=== PATIENT | male | born 1960 | race African-American/Black ===

== ENCOUNTER 2017-03-04 13:08 | Inpatient (IN) | payer OTHER ==
[2017-03-04 14:10] VITALS: BMI 22.9
--- NOTE | 2017-03-04 17:12 | HP ---
Admission [facility] Chief Complaint: I WANT TO GO TO REHAB Allergies/Adverse Reactions: Allergies Allergy/AdvReac Type Severity Reaction Status Date / Time No Known Drug Allergies Allergy Verified 03/04/17 15:27 lactose AdvReac Unknown LACTOSE Verified 03/04/17 15:27 INTOLERANCE NKDA Allergy Uncoded 03/04/17 15:27 History of Present Illness: 56 YEARS OLD MALE WITH LONG HISTORY OF COCAINE ALCOHOL MARIJUANA DEPENDENCE, HAS HIV ARTHRITIS STUFFY NOSE HEPATITIS C AND WEIGHT LOSS DEPRESSION IS ADMITTED TO REHAB Exam Limitations: No Limitations - Ebola screening Have you traveled outside of the country in the last 21 days: No Have you had contact with anyone from an Ebola affected area: No Have you been sick,other than usual withdrawal symptoms: No Do you have a fever: No - Review of Systems Constitutional: Loss of Appetite, Unintentional Wgt. Loss, Unexplained wgt Loss EENT: reports: Blurred Vision (EYE GLASSES), Dental Problems (MULTIPLE TEETH CAVITIES) Respiratory: reports: No Symptoms reported Cardiac: reports: No Symptoms Reported GI: reports: No Symptoms Reported : reports: No Symptoms Reported Musculoskeletal: reports: Back Pain, Joint Pain, Muscle Pain Integumentary: reports: No Symptoms Reported Neuro: reports: No Symptoms reported Endocrine: reports: No Symptoms Reported Hematology: reports: No Symptoms Reported Psychiatric: reports: Judgement Intact, Orientated x3, Anxious, Depressed Other Systems: Reviewed and Negative Patient History - Patient Medical History Hx Anemia: No Hx Asthma: No Hx Chronic Obstructive Pulmonary Disease (COPD): No Hx Cancer: No Hx Cardiac Disorders: No Hx Congestive Heart Failure: No Hx Hypertension: No Hx Hypercholesterolemia: No Hx Pacemaker: No HX Cerebrovascular Accident: No Hx Seizures: No Hx Dementia: No Hx Diabetes: No Hx Gastrointestinal Disorders: No Hx Liver Disease: No Hx Genitourinary Disorders: No Hx Sexually Transmitted Disorders: Yes (gonorrhea and syphilis) Hx Renal Disease (ESRD): No Hx Thyroid Disease: No Hx Human Immunodeficiency Virus (HIV): Yes (since 1989) Hx Hepatitis C: Yes Hx Depression: Yes Hx Suicide Attempt: No Hx Bipolar Disorder: No Hx Schizophrenia: No - Patient Surgical History Past Surgical History: Yes Hx Neurologic Surgery: No Hx Cataract Extraction: No Hx Cardiac Surgery: No Hx Lung Surgery: No Hx Breast Surgery: No Hx Breast Biopsy: No Hx Abdominal Surgery: No Hx Appendectomy: No Hx Cholecystectomy: No Hx Genitourinary Surgery: No Hx Orthopedic Surgery: Yes (arthroscopic surgery left shoulder for rotator cuff injury) Other Surgical History: right knee surgery 2006 Anesthesia Reaction: No - PPD History Previous Implant?: Yes Documented Results: Negative w/proof Implanted On Prior [facility] Admission?: Yes Date: 03/28/16 Results: 0 mm PPD to be Administered?: No - Smoking Cessation Smoking history: Never smoked Have you smoked in the past 12 months: No Hx Chewing Tobacco Use: No Initiated information on smoking cessation: No - Substance & Tx. History Hx Alcohol Use: Yes Hx Substance Use: Yes Substance Use Type: Alcohol, Cocaine, Marijuana Hx Substance Use Treatment: Yes (03/26-03/30/16 [facility] - Substances Abused Cocaine Route: Smoking Frequency: Daily Amount used: 150$ Age of first use: 25 Date of Last Use: 03/03/17 Family Disease History - Family Disease History Family Disease History: Other: Father (NEVER MET), Mother ( UNKNOWN CAUSE), Brother (NO CONTACT), Sister (NO CONTACT) Admission Physical Exam S - Vital Signs Vital Signs: Vital Signs - 24 hr 03/04/17 14:03 Temperature 97 F L Pulse Rate 81 Respiratory 20 Rate Blood Pressure 129/88 - Physical General Appearance: Yes: No Apparent Distress, Appropriately Dressed, Thin HEENTM: Yes: Hearing grossly Normal, Normal ENT Inspection, Normocephalic, Normal Voice Respiratory: Yes: Chest Non-Tender, Lungs Clear, Normal Breath Sounds, No Respiratory Distress, No Accessory Muscle Use Neck: Yes: Supple, Trachea in good position Breast: Yes: Breasts Symetrical Cardiology: Yes: Regular Rhythm, Regular Rate, S1, S2 Abdominal: Yes: Normal Bowel Sounds, Non Tender, Soft Genitourinary: Yes: Within Normal Limits Back: Yes: Normal Inspection Musculoskeletal: Yes: full range of Motion, Gait Steady, Back pain, Muscle Pain Extremities: Yes: Normal Inspection, Normal Range of Motion, Non-Tender Neurological: Yes: Fully Oriented, Alert, Motor Strength 5/5, Normal Mood/Affect , Normal Response Integumentary: Yes: Warm Lymphatic: Yes: Within Normal Limits - Diagnostic (1) Acquired immune deficiency syndrome (AIDS) Current Visit: Yes Status: Chronic (2) First degree hemorrhoids Current Visit: Yes Status: Chronic (3) Weight decreased Current Visit: Yes Status: Acute (4) depression Current Visit: Yes Status: Suspected (5) Cocaine dependence, uncomplicated Current Visit: Yes Status: Chronic (6) Hepatitis C Current Visit: Yes Status: Resolved Qualifiers: Viral hepatitis chronicity: carrier Qualified Code(s): B18.2 - Chronic viral hepatitis C (7) Chronic nasal congestion Current Visit: Yes Status: Chronic (8) Dry skin dermatitis Current Visit: Yes Status: Chronic Cleared for Admission [facility] - Detox or Rehab [facility] Level of Care: Observation Bed Detox Regimen/Protocol: Not Applicable Claeared for Rehab Admission: Yes [facility] Breath Alcohol Content Breath Alcohol Content: 0 Urine Drug Screen - Results Drug Screen Negative: No Urine Drug Screen Results: BRENDON-Cocaine
[2017-03-04] MEDS ORDERED: MAG HYDROX/AL HYDROX/SIMETH 30 ML UNIT-DOSE CUP PO PRN (17:19)
[2017-03-04] MEDS ORDERED: P-EPHED 60MG/TRIPROLIDI 2.5MG TABLET PO PRN (17:19)
[2017-03-04] MEDS ORDERED: MAGNESIUM CITRATE 300 ML BOTTLE PO PRN (17:19)
[2017-03-04] MEDS ORDERED: MAGNESIUM HYDROX 2400MG/30ML ORAL SUSPENSION 30 ML CUP PO PRN (17:19)
[2017-03-04] MEDS ORDERED: hydrOXYzine PAMOATE 50 MG CAPSULE (FP) PO PRN (17:19)
[2017-03-04] MEDS ORDERED: MENTHOL/PHENOL 1 EACH UD MM PRN (17:19)
[2017-03-04] MEDS ORDERED: LOPERAMIDE HCL 2 MG CAPSULE PO PRN (17:19)
[2017-03-04] MEDS ORDERED: guaiFENesin/D-METHORPHAN HB 10 ML UNIT-DOSE CUPS PO PRN (17:19)
[2017-03-04] MEDS ORDERED: ACETAMINOPHEN 325 MG TABLET (FP) PO PRN (17:19)
[2017-03-04] MEDS ORDERED: BENZOCAINE 28 GM HEMORRHOIDAL OINTMENT PR PRN (17:23)
[2017-03-04] MEDS: SODIUM CHLORIDE NASAL SPRAY 44 ML BOTTLE NS SCH (22:00)
[2017-03-04] MEDS: THIAMINE HCL 100 MG TABLET (FP) PO SCH (22:00)
[2017-03-04] MEDS ORDERED: LORATADINE 10 MG TABLET PO SCH (22:00)
[2017-03-04] MEDS: NAPROXEN 500 MG TABLET (FP) PO SCH (22:00)
[2017-03-04] MEDS: MINERAL OIL/PETROLAT/WATER TOPICAL CREAM 113 GM JAR TP SCH (22:01)
[2017-03-04] MEDS: diphenhydrAMINE HCL 50 MG CAPSULE PO PRN (22:02)
[2017-03-05 00:37] LABS: URINE APPEARANCE CLEAR; URINE BILIRUBIN NEGATIVE (NEGATIVE); URINE BLOOD NEGATIVE (NEGATIVE); URINE COLOR STRAW; URINE GLUCOSE (UA) NEGATIVE (NEGATIVE); URINE KETONE NEGATIVE (NEGATIVE); URINE LEUK ESTERASE NEGATIVE (NEGATIVE); URINE NITRITE NEGATIVE (NEGATIVE); URINE PROTEIN NEGATIVE (NEGATIVE); URINE UROBILINOGEN NEGATIVE mg/dL (0.2-1.0)
[2017-03-05] MEDS: SODIUM CHLORIDE NASAL SPRAY 44 ML BOTTLE NS SCH ×3 (06:54→21:52)
--- NOTE | 2017-03-05 09:18 | EKG ---
Test Reason : Blood Pressure : / mmHG Vent. Rate : 069 BPM Atrial Rate : 069 BPM P-R Int : 162 ms QRS Dur : 086 ms QT Int : 392 ms P-R-T Axes : 073 079 079 degrees QTc Int : 420 ms NORMAL SINUS RHYTHM MINIMAL VOLTAGE CRITERIA FOR LVH, MAY BE NORMAL VARIANT NONSPECIFIC ST ABNORMALITY NO PREVIOUS ECGS AVAILABLE Confirmed by ARTURO HERMAN MD ([id number]) on 03/05/2017 9:17:44 AM Referred By: Confirmed By:ARTURO HERMAN MD
[2017-03-05] MEDS: PRENATAL VITAMINS W/ FOLIC ACID TABLET (FP) PO SCH (10:46)
[2017-03-05] MEDS: SULFAMETHOXAZOLE/TRIMETHOPRIM 800MG/160MG D.S. TABLET PO SCH (12:07)
[2017-03-05] MEDS: PATIENT'S OWN MEDICATION (NON-FORMULARY) (Elviteg/Cobi/Emtric/Tenofo Dis [Stribild Tablet] PO SCH (12:07)
[2017-03-05] MEDS: NAPROXEN 500 MG TABLET (FP) PO SCH ×2 (14:20→21:52)
[2017-03-05 14:22] LABS: MCH 30.4 pg (25.7-33.7); MCHC 32.9 g/dl (32.0-35.9); MEAN CELL VOLUME 92.5 fl (80-96); MEAN PLT VOLUME 10.1 fl (7.5-11.1); PLATELET COUNT 139 K/MM3 (134-434); RDW 14.5 % (11.9-15.9); WHITE BLOOD COUNT 2.6 K/mm3 (4.0-10.0)
[2017-03-05 14:40] LABS: ALBUMIN 3.2 g/dl (3.4-5.0); ANION GAP 5 (8-16); BILIRUBIN,TOTAL 0.5 mg/dL (0.2-1.0); CALCIUM 8.5 mg/dL (8.5-10.1); CO2 33 mmol/L (21-32); CREATININE 1.2 mg/dL (0.7-1.3); GLUCOSE,RANDOM 108 mg/dL (74-106); SGOT/AST 22 U/L (15-37); SGPT/ALT 28 U/L (12-78); TOT PROT 6.4 g/dl (6.4-8.2)
[2017-03-05 14:41] LABS: ALK PHOS 64 U/L (45-117)
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
[2017-03-05] MEDS: MINERAL OIL/PETROLAT/WATER TOPICAL CREAM 113 GM JAR TP SCH (21:52)
[2017-03-05] MEDS: THIAMINE HCL 100 MG TABLET (FP) PO SCH (21:52)
[2017-03-05] MEDS: LORATADINE 10 MG TABLET PO SCH (21:52)
[2017-03-05] MEDS: MIRTAZAPINE 30 MG TABLET (FP) PO SCH (21:53)
[2017-03-05] MEDS: risperiDONE 1 MG TABLET (FP) PO SCH (21:53)
[2017-03-06] MEDS: SODIUM CHLORIDE NASAL SPRAY 44 ML BOTTLE NS SCH ×3 (07:00→21:42)
[2017-03-06] MEDS: NAPROXEN 500 MG TABLET (FP) PO SCH ×2 (10:36→21:43)
[2017-03-06] MEDS: PRENATAL VITAMINS W/ FOLIC ACID TABLET (FP) PO SCH (10:36)
[2017-03-06] MEDS: SULFAMETHOXAZOLE/TRIMETHOPRIM 800MG/160MG D.S. TABLET PO SCH (10:36)
[2017-03-06] MEDS: PATIENT'S OWN MEDICATION (NON-FORMULARY) (Elviteg/Cobi/Emtric/Tenofo Dis [Stribild Tablet] PO SCH (10:37)
[2017-03-06] MEDS: risperiDONE 1 MG TABLET (FP) PO SCH (21:42)
[2017-03-06] MEDS: LORATADINE 10 MG TABLET PO SCH (21:42)
[2017-03-06] MEDS: MIRTAZAPINE 30 MG TABLET (FP) PO SCH (21:42)
[2017-03-06] MEDS: MINERAL OIL/PETROLAT/WATER TOPICAL CREAM 113 GM JAR TP SCH (21:42)
[2017-03-06] MEDS: THIAMINE HCL 100 MG TABLET (FP) PO SCH (21:42)
[2017-03-06] MEDS: RALTEGRAVIR POTASSIUM 400 MG TAB PO SCH (21:43)
[2017-03-07] MEDS: SODIUM CHLORIDE NASAL SPRAY 44 ML BOTTLE NS SCH ×3 (06:33→21:39)
[2017-03-07] MEDS: RALTEGRAVIR POTASSIUM 400 MG TAB PO SCH ×2 (10:35→21:39)
[2017-03-07] MEDS: PRENATAL VITAMINS W/ FOLIC ACID TABLET (FP) PO SCH (10:36)
[2017-03-07] MEDS: SULFAMETHOXAZOLE/TRIMETHOPRIM 800MG/160MG D.S. TABLET PO SCH (10:36)
[2017-03-07] MEDS: EMTRICITABINE 200MG/TENOFOVIR 300MG PO SCH (10:36)
[2017-03-07] MEDS: RITONAVIR 100 MG TABLET PO SCH (10:36)
[2017-03-07] MEDS: NAPROXEN 500 MG TABLET (FP) PO SCH ×2 (10:37→21:39)
[2017-03-07] MEDS: risperiDONE 1 MG TABLET (FP) PO SCH (21:39)
[2017-03-07] MEDS: LORATADINE 10 MG TABLET PO SCH (21:39)
[2017-03-07] MEDS: MIRTAZAPINE 30 MG TABLET (FP) PO SCH (21:39)
[2017-03-07] MEDS: THIAMINE HCL 100 MG TABLET (FP) PO SCH (21:39)
[2017-03-07] MEDS: MINERAL OIL/PETROLAT/WATER TOPICAL CREAM 113 GM JAR TP SCH (21:39)
[2017-03-08] MEDS: SODIUM CHLORIDE NASAL SPRAY 44 ML BOTTLE NS SCH ×3 (06:31→22:05)
[2017-03-08] MEDS: PRENATAL VITAMINS W/ FOLIC ACID TABLET (FP) PO SCH (10:25)
[2017-03-08] MEDS: NAPROXEN 500 MG TABLET (FP) PO SCH ×2 (10:25→22:03)
[2017-03-08] MEDS: EMTRICITABINE 200MG/TENOFOVIR 300MG PO SCH (10:25)
[2017-03-08] MEDS: RITONAVIR 100 MG TABLET PO SCH (10:26)
[2017-03-08] MEDS: SULFAMETHOXAZOLE/TRIMETHOPRIM 800MG/160MG D.S. TABLET PO SCH (10:26)
[2017-03-08] MEDS: RALTEGRAVIR POTASSIUM 400 MG TAB PO SCH ×2 (10:26→22:03)
[2017-03-08] MEDS: risperiDONE 1 MG TABLET (FP) PO SCH (22:02)
[2017-03-08] MEDS: MIRTAZAPINE 30 MG TABLET (FP) PO SCH (22:02)
[2017-03-08] MEDS: THIAMINE HCL 100 MG TABLET (FP) PO SCH (22:02)
[2017-03-08] MEDS: MINERAL OIL/PETROLAT/WATER TOPICAL CREAM 113 GM JAR TP SCH (22:03)
[2017-03-08] MEDS: LORATADINE 10 MG TABLET PO SCH (22:03)
[2017-03-09] MEDS: SODIUM CHLORIDE NASAL SPRAY 44 ML BOTTLE NS SCH ×3 (06:37→21:55)
[2017-03-09] MEDS: EMTRICITABINE 200MG/TENOFOVIR 300MG PO SCH (10:35)
[2017-03-09] MEDS: PRENATAL VITAMINS W/ FOLIC ACID TABLET (FP) PO SCH (10:35)
[2017-03-09] MEDS: RITONAVIR 100 MG TABLET PO SCH (10:35)
[2017-03-09] MEDS: SULFAMETHOXAZOLE/TRIMETHOPRIM 800MG/160MG D.S. TABLET PO SCH (10:35)
[2017-03-09] MEDS: RALTEGRAVIR POTASSIUM 400 MG TAB PO SCH ×2 (10:35→21:54)
[2017-03-09] MEDS: NAPROXEN 500 MG TABLET (FP) PO SCH ×2 (10:36→21:57)
[2017-03-09] MEDS ORDERED: IBUPROFEN 600 MG TABLET (FP) PO PRN (13:44)
[2017-03-09] MEDS ORDERED: IBUPROFEN 400 MG TABLET (FP) PO PRN (13:44)
[2017-03-09] MEDS: LIDOCAINE 5% TOPICAL PATCH TP SCH (15:35)
[2017-03-09] MEDS: PANTOPRAZOLE 40 MG TABLET (FP) PO SCH (15:35)
[2017-03-09] MEDS: THIAMINE HCL 100 MG TABLET (FP) PO SCH (21:54)
[2017-03-09] MEDS: risperiDONE 1 MG TABLET (FP) PO SCH (21:54)
[2017-03-09] MEDS: LORATADINE 10 MG TABLET PO SCH (21:54)
[2017-03-09] MEDS: MINERAL OIL/PETROLAT/WATER TOPICAL CREAM 113 GM JAR TP SCH (21:55)
[2017-03-09] MEDS: MIRTAZAPINE 30 MG TABLET (FP) PO SCH (21:56)
[2017-03-09] MEDS: LIDOCAINE PATCH REMOVAL MC SCH (22:49)
[2017-03-10] MEDS: SODIUM CHLORIDE NASAL SPRAY 44 ML BOTTLE NS SCH ×3 (06:10→22:01)
[2017-03-10] MEDS: SULFAMETHOXAZOLE/TRIMETHOPRIM 800MG/160MG D.S. TABLET PO SCH (10:34)
[2017-03-10] MEDS: NAPROXEN 500 MG TABLET (FP) PO SCH ×2 (10:34→21:58)
[2017-03-10] MEDS: PANTOPRAZOLE 40 MG TABLET (FP) PO SCH (10:34)
[2017-03-10] MEDS: RITONAVIR 100 MG TABLET PO SCH (10:34)
[2017-03-10] MEDS: PRENATAL VITAMINS W/ FOLIC ACID TABLET (FP) PO SCH (10:34)
[2017-03-10] MEDS: RALTEGRAVIR POTASSIUM 400 MG TAB PO SCH ×2 (10:34→21:58)
[2017-03-10] MEDS: EMTRICITABINE 200MG/TENOFOVIR 300MG PO SCH (10:34)
[2017-03-10] MEDS: LIDOCAINE 5% TOPICAL PATCH TP SCH (10:35)
[2017-03-10] MEDS: THIAMINE HCL 100 MG TABLET (FP) PO SCH (21:58)
[2017-03-10] MEDS: risperiDONE 1 MG TABLET (FP) PO SCH (21:58)
[2017-03-10] MEDS: diphenhydrAMINE HCL 50 MG CAPSULE PO PRN (21:58)
[2017-03-10] MEDS: MIRTAZAPINE 30 MG TABLET (FP) PO SCH (21:58)
[2017-03-10] MEDS: LIDOCAINE PATCH REMOVAL MC SCH (21:59)
[2017-03-10] MEDS: MINERAL OIL/PETROLAT/WATER TOPICAL CREAM 113 GM JAR TP SCH (21:59)
[2017-03-10] MEDS: LORATADINE 10 MG TABLET PO SCH (22:01)
[2017-03-11] MEDS: SODIUM CHLORIDE NASAL SPRAY 44 ML BOTTLE NS SCH ×3 (06:38→22:04)
[2017-03-11] MEDS: SULFAMETHOXAZOLE/TRIMETHOPRIM 800MG/160MG D.S. TABLET PO SCH (10:40)
[2017-03-11] MEDS: RITONAVIR 100 MG TABLET PO SCH (10:40)
[2017-03-11] MEDS: NAPROXEN 500 MG TABLET (FP) PO SCH ×2 (10:41→22:01)
[2017-03-11] MEDS: PRENATAL VITAMINS W/ FOLIC ACID TABLET (FP) PO SCH (10:41)
[2017-03-11] MEDS: EMTRICITABINE 200MG/TENOFOVIR 300MG PO SCH (10:41)
[2017-03-11] MEDS: PANTOPRAZOLE 40 MG TABLET (FP) PO SCH (10:41)
[2017-03-11] MEDS: RALTEGRAVIR POTASSIUM 400 MG TAB PO SCH ×2 (10:41→22:01)
[2017-03-11] MEDS: LIDOCAINE 5% TOPICAL PATCH TP SCH (10:42)
[2017-03-11] MEDS: THIAMINE HCL 100 MG TABLET (FP) PO SCH (22:01)
[2017-03-11] MEDS: risperiDONE 1 MG TABLET (FP) PO SCH (22:01)
[2017-03-11] MEDS: MIRTAZAPINE 30 MG TABLET (FP) PO SCH (22:01)
[2017-03-11] MEDS: LORATADINE 10 MG TABLET PO SCH (22:01)
[2017-03-11] MEDS: LIDOCAINE PATCH REMOVAL MC SCH (22:02)
[2017-03-11] MEDS: MINERAL OIL/PETROLAT/WATER TOPICAL CREAM 113 GM JAR TP SCH (22:02)
[2017-03-12] MEDS: SODIUM CHLORIDE NASAL SPRAY 44 ML BOTTLE NS SCH ×3 (07:02→21:58)
[2017-03-12] MEDS: LIDOCAINE 5% TOPICAL PATCH TP SCH (10:42)
[2017-03-12] MEDS: SULFAMETHOXAZOLE/TRIMETHOPRIM 800MG/160MG D.S. TABLET PO SCH (10:42)
[2017-03-12] MEDS: EMTRICITABINE 200MG/TENOFOVIR 300MG PO SCH (10:42)
[2017-03-12] MEDS: RITONAVIR 100 MG TABLET PO SCH (10:42)
[2017-03-12] MEDS: RALTEGRAVIR POTASSIUM 400 MG TAB PO SCH ×2 (10:43→21:57)
[2017-03-12] MEDS: PANTOPRAZOLE 40 MG TABLET (FP) PO SCH (10:43)
[2017-03-12] MEDS: NAPROXEN 500 MG TABLET (FP) PO SCH ×2 (10:43→21:57)
[2017-03-12] MEDS: PRENATAL VITAMINS W/ FOLIC ACID TABLET (FP) PO SCH (10:43)
[2017-03-12] MEDS: LORATADINE 10 MG TABLET PO SCH (21:56)
[2017-03-12] MEDS: MIRTAZAPINE 30 MG TABLET (FP) PO SCH (21:56)
[2017-03-12] MEDS: THIAMINE HCL 100 MG TABLET (FP) PO SCH (21:56)
[2017-03-12] MEDS: risperiDONE 1 MG TABLET (FP) PO SCH (21:56)
[2017-03-12] MEDS: DOCUSATE SODIUM 100 MG CAPSULE (FP) PO SCH (21:57)
[2017-03-12] MEDS: MINERAL OIL/PETROLAT/WATER TOPICAL CREAM 113 GM JAR TP SCH (21:57)
[2017-03-12] MEDS: LIDOCAINE PATCH REMOVAL MC SCH (21:58)
[2017-03-13] MEDS: SODIUM CHLORIDE NASAL SPRAY 44 ML BOTTLE NS SCH ×3 (06:46→21:56)
[2017-03-13] MEDS: SULFAMETHOXAZOLE/TRIMETHOPRIM 800MG/160MG D.S. TABLET PO SCH (10:44)
[2017-03-13] MEDS: RITONAVIR 100 MG TABLET PO SCH (10:44)
[2017-03-13] MEDS: NAPROXEN 500 MG TABLET (FP) PO SCH ×2 (10:44→21:55)
[2017-03-13] MEDS: EMTRICITABINE 200MG/TENOFOVIR 300MG PO SCH (10:44)
[2017-03-13] MEDS: DOCUSATE SODIUM 100 MG CAPSULE (FP) PO SCH ×2 (10:44→21:55)
[2017-03-13] MEDS: PANTOPRAZOLE 40 MG TABLET (FP) PO SCH (10:44)
[2017-03-13] MEDS: RALTEGRAVIR POTASSIUM 400 MG TAB PO SCH ×2 (10:44→21:55)
[2017-03-13] MEDS: PRENATAL VITAMINS W/ FOLIC ACID TABLET (FP) PO SCH (10:44)
[2017-03-13] MEDS: LIDOCAINE 5% TOPICAL PATCH TP SCH (10:45)
[2017-03-13] MEDS: MIRTAZAPINE 30 MG TABLET (FP) PO SCH (21:55)
[2017-03-13] MEDS: risperiDONE 1 MG TABLET (FP) PO SCH (21:55)
[2017-03-13] MEDS: THIAMINE HCL 100 MG TABLET (FP) PO SCH (21:55)
[2017-03-13] MEDS: MINERAL OIL/PETROLAT/WATER TOPICAL CREAM 113 GM JAR TP SCH (21:56)
[2017-03-13] MEDS: LIDOCAINE PATCH REMOVAL MC SCH (21:56)
[2017-03-13] MEDS: LORATADINE 10 MG TABLET PO SCH (21:59)
[2017-03-14] MEDS: SODIUM CHLORIDE NASAL SPRAY 44 ML BOTTLE NS SCH ×3 (06:18→21:57)
[2017-03-14] MEDS: RALTEGRAVIR POTASSIUM 400 MG TAB PO SCH ×2 (10:20→21:56)
[2017-03-14] MEDS: SULFAMETHOXAZOLE/TRIMETHOPRIM 800MG/160MG D.S. TABLET PO SCH (10:20)
[2017-03-14] MEDS: PANTOPRAZOLE 40 MG TABLET (FP) PO SCH (10:20)
[2017-03-14] MEDS: NAPROXEN 500 MG TABLET (FP) PO SCH ×2 (10:20→21:56)
[2017-03-14] MEDS: DOCUSATE SODIUM 100 MG CAPSULE (FP) PO SCH ×2 (10:20→21:56)
[2017-03-14] MEDS: PRENATAL VITAMINS W/ FOLIC ACID TABLET (FP) PO SCH (10:20)
[2017-03-14] MEDS: EMTRICITABINE 200MG/TENOFOVIR 300MG PO SCH (10:21)
[2017-03-14] MEDS: LIDOCAINE 5% TOPICAL PATCH TP SCH (10:21)
[2017-03-14] MEDS: RITONAVIR 100 MG TABLET PO SCH (10:21)
[2017-03-14] MEDS: risperiDONE 1 MG TABLET (FP) PO SCH (21:56)
[2017-03-14] MEDS: MIRTAZAPINE 30 MG TABLET (FP) PO SCH (21:56)
[2017-03-14] MEDS: LORATADINE 10 MG TABLET PO SCH (21:56)
[2017-03-14] MEDS: THIAMINE HCL 100 MG TABLET (FP) PO SCH (21:56)
[2017-03-14] MEDS: LIDOCAINE PATCH REMOVAL MC SCH (21:57)
[2017-03-14] MEDS: MINERAL OIL/PETROLAT/WATER TOPICAL CREAM 113 GM JAR TP SCH (21:57)
[2017-03-15] MEDS: SODIUM CHLORIDE NASAL SPRAY 44 ML BOTTLE NS SCH ×3 (06:47→22:12)
[2017-03-15] MEDS: RITONAVIR 100 MG TABLET PO SCH (11:09)
[2017-03-15] MEDS: RALTEGRAVIR POTASSIUM 400 MG TAB PO SCH ×2 (11:09→22:10)
[2017-03-15] MEDS: DOCUSATE SODIUM 100 MG CAPSULE (FP) PO SCH ×2 (11:09→22:10)
[2017-03-15] MEDS: SULFAMETHOXAZOLE/TRIMETHOPRIM 800MG/160MG D.S. TABLET PO SCH (11:09)
[2017-03-15] MEDS: PRENATAL VITAMINS W/ FOLIC ACID TABLET (FP) PO SCH (11:09)
[2017-03-15] MEDS: LIDOCAINE 5% TOPICAL PATCH TP SCH (11:09)
[2017-03-15] MEDS: EMTRICITABINE 200MG/TENOFOVIR 300MG PO SCH (11:09)
[2017-03-15] MEDS: PANTOPRAZOLE 40 MG TABLET (FP) PO SCH (11:09)
[2017-03-15] MEDS: NAPROXEN 500 MG TABLET (FP) PO SCH ×2 (11:11→22:11)
[2017-03-15] MEDS: THIAMINE HCL 100 MG TABLET (FP) PO SCH (22:11)
[2017-03-15] MEDS: LIDOCAINE PATCH REMOVAL MC SCH (22:11)
[2017-03-15] MEDS: MIRTAZAPINE 30 MG TABLET (FP) PO SCH (22:11)
[2017-03-15] MEDS: LORATADINE 10 MG TABLET PO SCH (22:11)
[2017-03-15] MEDS: risperiDONE 1 MG TABLET (FP) PO SCH (22:11)
[2017-03-15] MEDS: MINERAL OIL/PETROLAT/WATER TOPICAL CREAM 113 GM JAR TP SCH (22:11)
[2017-03-16] MEDS: SODIUM CHLORIDE NASAL SPRAY 44 ML BOTTLE NS SCH ×3 (06:17→21:51)
[2017-03-16] MEDS: NAPROXEN 500 MG TABLET (FP) PO SCH ×2 (10:45→21:51)
[2017-03-16] MEDS: PANTOPRAZOLE 40 MG TABLET (FP) PO SCH (10:45)
[2017-03-16] MEDS: PRENATAL VITAMINS W/ FOLIC ACID TABLET (FP) PO SCH (10:45)
[2017-03-16] MEDS: DOCUSATE SODIUM 100 MG CAPSULE (FP) PO SCH ×2 (10:45→21:50)
[2017-03-16] MEDS: SULFAMETHOXAZOLE/TRIMETHOPRIM 800MG/160MG D.S. TABLET PO SCH (10:45)
[2017-03-16] MEDS: EMTRICITABINE 200MG/TENOFOVIR 300MG PO SCH (10:45)
[2017-03-16] MEDS: RITONAVIR 100 MG TABLET PO SCH (10:45)
[2017-03-16] MEDS: RALTEGRAVIR POTASSIUM 400 MG TAB PO SCH ×2 (10:45→21:50)
[2017-03-16] MEDS: LIDOCAINE 5% TOPICAL PATCH TP SCH (10:46)
[2017-03-16] MEDS: MIRTAZAPINE 30 MG TABLET (FP) PO SCH (21:50)
[2017-03-16] MEDS: LORATADINE 10 MG TABLET PO SCH (21:50)
[2017-03-16] MEDS: THIAMINE HCL 100 MG TABLET (FP) PO SCH (21:50)
[2017-03-16] MEDS: risperiDONE 1 MG TABLET (FP) PO SCH (21:50)
[2017-03-16] MEDS: MINERAL OIL/PETROLAT/WATER TOPICAL CREAM 113 GM JAR TP SCH (21:52)
[2017-03-16] MEDS: LIDOCAINE PATCH REMOVAL MC SCH (21:52)
[2017-03-17] MEDS: SODIUM CHLORIDE NASAL SPRAY 44 ML BOTTLE NS SCH ×3 (06:21→21:48)
[2017-03-17 07:29] VITALS: TEMP 98.1
[2017-03-17] MEDS: PANTOPRAZOLE 40 MG TABLET (FP) PO SCH (10:44)
[2017-03-17] MEDS: RITONAVIR 100 MG TABLET PO SCH (10:44)
[2017-03-17] MEDS: PRENATAL VITAMINS W/ FOLIC ACID TABLET (FP) PO SCH (10:44)
[2017-03-17] MEDS: NAPROXEN 500 MG TABLET (FP) PO SCH ×2 (10:44→21:48)
[2017-03-17] MEDS: DOCUSATE SODIUM 100 MG CAPSULE (FP) PO SCH ×2 (10:44→21:48)
[2017-03-17] MEDS: SULFAMETHOXAZOLE/TRIMETHOPRIM 800MG/160MG D.S. TABLET PO SCH (10:44)
[2017-03-17] MEDS: EMTRICITABINE 200MG/TENOFOVIR 300MG PO SCH (10:44)
[2017-03-17] MEDS: RALTEGRAVIR POTASSIUM 400 MG TAB PO SCH ×2 (10:44→21:47)
[2017-03-17] MEDS: LIDOCAINE 5% TOPICAL PATCH TP SCH (10:45)
--- NOTE | 2017-03-17 13:04 | PN ---
Psychiatric Progress Note Vital Signs: Vital Signs Period Temp Pulse Resp BP Sys/Ahumada Pulse Ox Last 24 Hr 98.1 F 83 18-18 114/80 Date of Session: 03/17/17 Chief Complaint:: "I hear voices" HPI: Patient addressing cocaine dependence comorbid Bipolar I disorder. ROS: HIV medically managed. Current Medications: Active Medications Generic Name Dose Route Start Last Admin Trade Name Freq PRN Reason Stop Dose Admin Acetaminophen 650 mg 03/04/17 17:19 Tylenol - PO Q4H PRN PAIN Al Hydroxide/Mg Hydroxide 30 ml 03/04/17 17:19 Mylanta Oral Suspension - PO Q6H PRN DYSPEPSIA Diphenhydramine HCl 50 mg 03/04/17 17:19 03/10/17 21:58 Benadryl - PO 50 mg HSMR1 PRN Administration INSOMNIA Docusate Sodium 100 mg 03/12/17 22:00 03/17/17 10:44 Colace - PO 100 mg BID VALE Administration Emtricitabine/Tenofovir 1 tab 03/07/17 10:00 03/17/17 10:44 Truvada PO 1 tab DAILY VALE Administration Eucalyptus/Menthol/Phenol/Sorbitol 1 each 03/04/17 17:19 Cepastat Lozenge - MM Q4H PRN SORE THROAT Guaifenesin 10 ml 03/04/17 17:19 Robitussin Dm - PO Q6H PRN COUGH Hydroxyzine Pamoate 50 mg 03/04/17 17:19 Vistaril - PO Q4H PRN AGITATION Lidocaine 1 patch 03/09/17 15:30 03/17/17 10:45 Lidoderm Patch - TP 1 patch DAILY VALE Administration Loperamide HCl 4 mg 03/04/17 17:19 Imodium - PO Q6H PRN DIARRHEA Loratadine 10 mg 03/05/17 10:40 03/16/17 21:50 Claritin - PO 10 mg HS VALE Administration Magnesium Citrate 300 ml 03/04/17 17:19 Citroma - PO Q48H PRN CONSTIPATION Magnesium Hydroxide 30 ml 03/04/17 17:19 Milk Of Magnesia - PO DAILY PRN CONSTIPATION Mirtazapine 30 mg 03/05/17 22:00 03/16/17 21:50 Remeron - PO 30 mg HS VALE Administration Miscellaneous 1 each 03/09/17 22:00 03/16/17 21:52 Lidoderm Patch Removal MC Not Given DAILY@2200 VALE Multi-Ingredient Lotion 1 applic 03/04/17 22:00 03/16/17 21:52 Eucerin (Small Jar) - TP Not Given HS VALE Naproxen 500 mg 03/09/17 22:00 03/17/17 10:44 Naprosyn - PO 500 mg BID VALE Administration Pantoprazole Sodium 40 mg 03/09/17 15:30 03/17/17 10:44 Protonix - PO 40 mg DAILY VALE Administration Multivit/Folic Acid/Iron 1 tab 03/05/17 10:00 03/17/17 10:44 Vitamins (Sjr) - PO 1 tab DAILY VALE Administration Pseudoephedrine/Triprolidine 1 combo 03/04/17 17:19 Actifed - PO TID PRN NASAL CONGESTION Raltegravir 400 mg 03/06/17 22:00 03/17/17 10:44 Isentress - PO 400 mg BID VALE Administration Risperidone 2 mg 03/17/17 12:53 Risperdal - PO HS VALE Risperidone 1 mg 03/18/17 10:00 Risperdal - PO DAILY VALE Risperidone 1 mg 03/17/17 12:53 Risperdal - PO 03/17/17 12:54 ONCE STA Ritonavir 100 mg 03/07/17 10:00 03/17/17 10:44 Norvir - PO 100 mg DAILY VALE Administration Sodium Chloride 2 spray 03/04/17 22:00 03/17/17 06:21 [place] Nasal [place] - NS Not Given TID VALE Thiamine HCl 100 mg 03/04/17 22:00 03/16/17 21:50 Vitamin B1 - PO 100 mg HS VALE Administration Trimethoprim/Sulfamethoxazole 1 each 03/05/17 11:00 03/17/17 10:44 Bactrim Ds - PO 1 each DAILY VALE Administration Current Side Effect: No Lab tests ordered: No Lab tests reviewed: Yes Provider note:: Patient reports he hears voice of his diseased , "she says don"t stay with this lady, leave her". Patient reports he lost his on October of this years, currently in relationship with someone. Reports he hears her voice days and nights, states it's very destructive, feels guilty and misses her. Supportive therapy has been provided, psychoeducation provided, will increase Risperdal 1 mg po am and 2mg hs , stat 1 mg now. Continue to monitor progress. Total face to face time:: 35 Mental Status Exam - Mental Status Exam Alert and Oriented to: Time, Place, Person Cognitive Function: Good Patient Appearance: Well Groomed Mood: Depressed, Sad, Anxious Affect: Appropriate, Mood Congruent Patient Behavior: Crying, Appropriate, Cooperative Speech Pattern: Clear, Appropriate Voice Loudness: Normal Thought Process: Intact, Goal Oriented Thought Disorder: Not Present Hallucinations: Auditory Suicidal Ideation: Denies Homicidal Ideation: Denies Insight/Judgement: Fair Sleep: Fair Appetite: Fair Muscle strength/Tone: Normal Gait/Station: Normal Psychiatric Treatment Plan - Problem List (1) Cocaine dependence Current Visit: No (2) Bipolar disorder Current Visit: Yes
[2017-03-17] MEDS ORDERED: risperiDONE 1 MG TABLET (FP) PO ONE (13:15)
[2017-03-17] MEDS: THIAMINE HCL 100 MG TABLET (FP) PO SCH (21:47)
[2017-03-17] MEDS: LORATADINE 10 MG TABLET PO SCH (21:48)
[2017-03-17] MEDS: MINERAL OIL/PETROLAT/WATER TOPICAL CREAM 113 GM JAR TP SCH (21:48)
[2017-03-17] MEDS: LIDOCAINE PATCH REMOVAL MC SCH (21:48)
[2017-03-17] MEDS: MIRTAZAPINE 30 MG TABLET (FP) PO SCH (21:48)
[2017-03-17] MEDS ORDERED: risperiDONE 2 MG TABLET PO SCH (22:00)
[2017-03-18] MEDS: SODIUM CHLORIDE NASAL SPRAY 44 ML BOTTLE NS SCH (06:14)
[2017-03-18 07:18] VITALS: BP 97/70; PULSE 88
--- NOTE | 2017-03-18 09:50 | PN ---
Psychiatric Progress Note Vital Signs: Vital Signs Period Temp Pulse Resp BP Sys/Ahumada Pulse Ox Last 24 Hr 98.1 F 88 18-18 97/70 Date of Session: 03/18/17 Chief Complaint:: discharge visit HPI: Patient addressed cocaine dependence comorbid Bipolar I disorder. ROS: HIV+ medically managed Current Medications: Active Medications Generic Name Dose Route Start Last Admin Trade Name Freq PRN Reason Stop Dose Admin Acetaminophen 650 mg 03/04/17 17:19 Tylenol - PO Q4H PRN PAIN Al Hydroxide/Mg Hydroxide 30 ml 03/04/17 17:19 Mylanta Oral Suspension - PO Q6H PRN DYSPEPSIA Diphenhydramine HCl 50 mg 03/04/17 17:19 03/10/17 21:58 Benadryl - PO 50 mg HSMR1 PRN Administration INSOMNIA Docusate Sodium 100 mg 03/12/17 22:00 03/17/17 21:48 Colace - PO 100 mg BID VALE Administration Emtricitabine/Tenofovir 1 tab 03/07/17 10:00 03/17/17 10:44 Truvada PO 1 tab DAILY VALE Administration Eucalyptus/Menthol/Phenol/Sorbitol 1 each 03/04/17 17:19 Cepastat Lozenge - MM Q4H PRN SORE THROAT Guaifenesin 10 ml 03/04/17 17:19 Robitussin Dm - PO Q6H PRN COUGH Hydroxyzine Pamoate 50 mg 03/04/17 17:19 Vistaril - PO Q4H PRN AGITATION Lidocaine 1 patch 03/09/17 15:30 03/17/17 10:45 Lidoderm Patch - TP 1 patch DAILY VALE Administration Loperamide HCl 4 mg 03/04/17 17:19 Imodium - PO Q6H PRN DIARRHEA Loratadine 10 mg 03/05/17 10:40 03/17/17 21:48 Claritin - PO 10 mg HS VALE Administration Magnesium Citrate 300 ml 03/04/17 17:19 Citroma - PO Q48H PRN CONSTIPATION Magnesium Hydroxide 30 ml 03/04/17 17:19 Milk Of Magnesia - PO DAILY PRN CONSTIPATION Mirtazapine 30 mg 03/05/17 22:00 03/17/17 21:48 Remeron - PO 30 mg HS VALE Administration Miscellaneous 1 each 03/09/17 22:00 03/17/17 21:48 Lidoderm Patch Removal MC Not Given DAILY@2200 VALE Multi-Ingredient Lotion 1 applic 03/04/17 22:00 03/17/17 21:48 Eucerin (Small Jar) - TP Not Given HS VALE Naproxen 500 mg 03/09/17 22:00 03/17/17 21:48 Naprosyn - PO 500 mg BID VALE Administration Pantoprazole Sodium 40 mg 03/09/17 15:30 03/17/17 10:44 Protonix - PO 40 mg DAILY VALE Administration Multivit/Folic Acid/Iron 1 tab 03/05/17 10:00 03/17/17 10:44 Vitamins (Sjr) - PO 1 tab DAILY VALE Administration Pseudoephedrine/Triprolidine 1 combo 03/04/17 17:19 Actifed - PO TID PRN NASAL CONGESTION Raltegravir 400 mg 03/06/17 22:00 03/17/17 21:47 Isentress - PO 400 mg BID VALE Administration Risperidone 2 mg 03/17/17 22:00 03/17/17 21:47 Risperdal - PO 2 mg HS VALE Administration Risperidone 1 mg 03/18/17 10:00 Risperdal - PO DAILY VALE Ritonavir 100 mg 03/07/17 10:00 03/17/17 10:44 Norvir - PO 100 mg DAILY VALE Administration Sodium Chloride 2 spray 03/04/17 22:00 03/18/17 06:14 [place] Nasal [place] - NS Not Given TID VALE Thiamine HCl 100 mg 03/04/17 22:00 03/17/17 21:47 Vitamin B1 - PO 100 mg HS VALE Administration Trimethoprim/Sulfamethoxazole 1 each 03/05/17 11:00 03/17/17 10:44 Bactrim Ds - PO 1 each DAILY VALE Administration Current Side Effect: No Lab tests ordered: No Lab tests reviewed: Yes Provider note:: Patient has completed today this inpatient rehabilitation treatment and met his goals, will continue to address his issues at [facility] outpatient treatment program. He gained insights into importance to continue maintain abstinence and changing behavior, utilize all supports available to prevent relapses. He reports that hallucinations have subsided with medication management, no side-effects reported, scripts provided for 30 days, he is stable for discharge today, patient was encouraged to use alternative methods to cope with life stressors. Total face to face time:: 20 Mental Status Exam - Mental Status Exam Alert and Oriented to: Time, Place, Person Cognitive Function: Good Patient Appearance: Well Groomed Mood: Hopeful Affect: Appropriate, Mood Congruent Patient Behavior: Appropriate, Cooperative Speech Pattern: Clear, Appropriate Voice Loudness: Normal Thought Process: Goal Oriented Thought Disorder: Not Present Hallucinations: Denies Suicidal Ideation: Denies Homicidal Ideation: Denies Insight/Judgement: Fair Sleep: Well Appetite: Good Muscle strength/Tone: Normal Gait/Station: Normal Psychiatric Treatment Plan - Problem List (1) Cocaine dependence Current Visit: No (2) Bipolar disorder Current Visit: Yes
[2017-03-18] MEDS ORDERED: risperiDONE 1 MG TABLET (FP) PO SCH (10:00)
[2017-03-18] MEDS: SULFAMETHOXAZOLE/TRIMETHOPRIM 800MG/160MG D.S. TABLET PO SCH (10:59)
[2017-03-18] MEDS: DOCUSATE SODIUM 100 MG CAPSULE (FP) PO SCH (10:59)
[2017-03-18] MEDS: RALTEGRAVIR POTASSIUM 400 MG TAB PO SCH (10:59)
[2017-03-18] MEDS: EMTRICITABINE 200MG/TENOFOVIR 300MG PO SCH (10:59)
[2017-03-18] MEDS: PANTOPRAZOLE 40 MG TABLET (FP) PO SCH (10:59)
[2017-03-18] MEDS: RITONAVIR 100 MG TABLET PO SCH (10:59)
[2017-03-18] MEDS: PRENATAL VITAMINS W/ FOLIC ACID TABLET (FP) PO SCH (11:00)
[2017-03-18] MEDS: NAPROXEN 500 MG TABLET (FP) PO SCH (11:01)
[2017-03-18] MEDS: LIDOCAINE 5% TOPICAL PATCH TP SCH (11:01)
== END 2017-03-18 11:15 | disposition home or self-care (01) | DRG 772 ==
LOC: YASAS 13:08 → Y5N 16:25
PROVIDERS: ADMIT Psychiatry & Neurology Psychiatry; ATTEND Psychiatry & Neurology Psychiatry
PROC: HZ42ZZZ Group Counseling for Substance Abuse Treatment, Cognitive-Behavioral (ICD-10-PCS; principal; 2017-03-04)
DX: F14.20 Cocaine dependence, uncomplicated (principal); F12.20 Cannabis dependence, uncomplicated; F31.9 Bipolar disorder, unspecified; B18.2 Chronic viral hepatitis C; Z21 Asymptomatic human immunodeficiency virus [HIV] infection status; M12.9 Arthropathy, unspecified; Z87.438 Personal history of other diseases of male genital organs
CPT/HCPCS: 36415; 80053; 81003; 85027; 86593; 93005; 93010; J2794

== ENCOUNTER 2020-02-01 11:19 | Inpatient (IN) | payer OTHER ==
--- NOTE | 2020-02-01 11:42 | BHS.RME ---
Substance Use & Tx History - Substance Use History Alcohol Substance amount: 2 40 oz beers Frequency of use: Daily Substance route: Oral Date of Last Use: 02/01/20 Cocaine- Powder Substance amount: $200 Frequency of use: Daily Substance route: Smoking Date of Last Use: 01/31/20 Marijuana/Hashish Substance amount: $5-10 Frequency of use: Less than 3 times per week Substance route: Smoking Date of Last Use: 01/30/20 - Last Treatment Date of last treatment: 03/04/17-03/08/17 Treatment type: Substance Use Disorder (ERIKA) Where was last treatment: Detox Physical/Psych/Mental Status - Behavior General Behavior: Increased activity (restlessness, agitation) Eye Contact: Normal - Cooperativeness Cooperativeness: Cooperative - Thinking Thought Processes: Tight, Logical, Goal Directed - Physical Health Problems Is patient presently having any pain?: No Does patient presently have any injuries (include location): No Does patient currently have a fever: No Is patient : No CIWA Nausea/Vomitin-Mild Nausea/No Vomiting Muscle Tremors: 4-Moderate,w/Arms Extend Anxiety: 4-Mod. Anxious/Guarded Agitation: 4-Moderately Restless Paroxysmal Sweats: 4-Forehead w/Sweat Beads Orientation: 0-Oriented Tacttile Disturbances: 0-None Auditory Disturbances: 0-None Visual Disturbances: 0-None Headache: 0-None Present CIWA-Ar Total Score: 17
--- NOTE | 2020-02-01 12:40 | HP ---
CIWA Score Nausea/Vomitin-Mild Nausea/No Vomiting Muscle Tremors: 4-Moderate,w/Arms Extend Anxiety: 4-Mod. Anxious/Guarded Agitation: 4-Moderately Restless Paroxysmal Sweats: 4-Forehead w/Sweat Beads Orientation: 0-Oriented Tacttile Disturbances: 0-None Auditory Disturbances: 0-None Visual Disturbances: 0-None Headache: 0-None Present CIWA-Ar Total Score: 17 - Admission Criteria OASAS Guidelines: Admission for Medically Managed Detox: Requires at least one of the followin. CIWA greater than 12 2. Seizures within the past 24 hours 3. Delirium tremens within the past 24 hours 4. Hallucinations within the past 24 hours 5. Acute intervention needed for co occurring medical disorder 6. Acute intervention needed for co occurring psychiatric disorder 7. Severe withdrawal that cannot be handled at a lower level of care (continued vomiting, continued diarrhea, abnormal vital signs) requiring intravenous medication and/or fluids 8. Admitting History and Physical - Admission Chief Complaint: " I am trying to get away from rinking and drugging." History of Present Illness: 59 year old male with history of alcohol dependence with withdrawal, cocaine use disorder, cannabis use disorder seeking detox. 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 Cocaine- Powder Substance amount: $200 Frequency of use: Daily Substance route: Smoking Date of Last Use: 01/31/20 Marijuana/Hashish Substance amount: $5-10 Frequency of use: Less than 3 times per week Substance route: Smoking Date of Last Use: 01/30/20 - Last Treatment Date of last treatment: 03/04/17-03/08/17 Treatment type: Substance Use Disorder (ERIKA) Where was last treatment: Detox PMH: HCV+ treated with Isabel and cured, HVI+ 1989, Hemorrhoids, Eczema Psurg: L shoulder Arthroscopic elisabeth for rotator cuff tear, R knee surgery 2006 Psych: Depression on Remeron Lives in congregate housing in [place] and no legal issues pending. CIWA=17 TAJ= 0.00 Patient meets criteria for detox as he has poor recovery environment and has multiple medical co-morbidities History Source: Patient Limitations to Obtaining History: No Limitations - Past Medical History Hepatobiliary: Yes: Hepatitis C Infectious Disease: Yes: HIV Dermatology: Yes: Eczema - Past Surgical History Additional Past Surgical History: See H&P - Smoking History Smoking history: Never smoked Have you smoked in the past 12 months: No - Alcohol/Substance Use Hx Alcohol Use: No Number of Drinks Daily: 2 History of Substance Use: reports: Cocaine - Social History Usual Living Arrangement: Yes: Alone Do you think of yourself as: Straight/Heterosexual ADL: Independent Occupation: [employer] History of Recent Travel: No Admission [facility] Allergies/Adverse Reactions: Allergies Allergy/AdvReac Type Severity Reaction Status Date / Time No Known Drug Allergies Allergy Verified 03/04/17 15:27 lactose AdvReac Unknown LACTOSE Verified 03/04/17 15:27 INTOLERANCE NKDA Allergy Uncoded 03/04/17 15:27 Exam Limitations: No Limitations - Ebola screening Have you traveled outside of the country in the last 21 days: No Have you had contact with anyone from an Ebola affected area: No Have you been sick,other than usual withdrawal symptoms: No Do you have a fever: No - Review of Systems Constitutional: Chills, Diaphoresis, Unintentional Wgt. Loss EENT: reports: No Symptoms Reported Respiratory: reports: No Symptoms reported Cardiac: reports: No Symptoms Reported GI: reports: No Symptoms Reported : reports: No Symptoms Reported Musculoskeletal: reports: No Symptoms Reported Integumentary: reports: No Symptoms Reported Neuro: reports: Headache Endocrine: reports: No Symptoms Reported Hematology: reports: No Symptoms Reported Psychiatric: reports: Judgement Intact, Mood/Affect Appropiate, Orientated x3, Agitated, Anxious Other Systems: Reviewed and Negative Patient History - Patient Medical History Hx Anemia: No Hx Asthma: No Hx Chronic Obstructive Pulmonary Disease (COPD): No Hx Cancer: No Hx Cardiac Disorders: No Hx Congestive Heart Failure: No Hx Hypertension: No Hx Hypercholesterolemia: No Hx Pacemaker: No HX Cerebrovascular Accident: No Hx Seizures: No Hx Dementia: No Hx Diabetes: No Hx Gastrointestinal Disorders: No Hx Liver Disease: No Hx Genitourinary Disorders: No Hx Sexually Transmitted Disorders: No Hx Renal Disease (ESRD): No Hx Thyroid Disease: No Hx Human Immunodeficiency Virus (HIV): Yes (since 1989) Hx Hepatitis C: Yes Hx Depression: Yes Hx Suicide Attempt: No Hx Bipolar Disorder: No Hx Schizophrenia: No - Patient Surgical History Past Surgical History: Yes Hx Neurologic Surgery: No Hx Cataract Extraction: No Hx Cardiac Surgery: No Hx Lung Surgery: No Hx Breast Surgery: No Hx Breast Biopsy: No Hx Abdominal Surgery: No Hx Appendectomy: No Hx Cholecystectomy: No Hx Genitourinary Surgery: No Hx Section: No Hx Orthopedic Surgery: Yes (arthroscopic surgery left shoulder for rotator cuff injury) Other Surgical History: right knee surgery 2006 Anesthesia Reaction: No - PPD History Previous Implant?: Yes Documented Results: Negative w/proof Implanted On Prior [facility] Admission?: Yes Date: 03/28/16 Results: 0 mm PPD to be Administered?: Yes - Smoking Cessation Smoking history: Never smoked Have you smoked in the past 12 months: No Hx Chewing Tobacco Use: No Initiated information on smoking cessation: No - Substances abused Alcohol Substance route: Oral Frequency: Daily (2) Amount used: 2 40 oz beers Age of first use: 13 Date of last use: 02/01/20 Cocaine Substance route: Smoking Frequency: Daily Amount used: $200 Age of first use: 27 Date of last use: 01/31/20 Marijuana/Hashish Substance route: Smoking Frequency: Daily Amount used: $10-20 Age of first use: 13 Date of last use: 01/30/20 Admission Physical Exam S - Physical General Appearance: Yes: Mild Distress, Thin, Tremorous, Irritable, Sweating, Anxious HEENTM: Yes: EOMI, Hearing grossly Normal, Normal ENT Inspection, Normocephalic, Normal Voice, WESLEY, Pharynx Normal, Tm's normal Respiratory: Yes: Chest Non-Tender, Lungs Clear, Normal Breath Sounds, No Respiratory Distress, No Accessory Muscle Use Neck: Yes: No masses,lesions,Nodules, Supple, Trachea in good position Cardiology: Yes: Regular Rhythm, S1, S2, Tachycardia Abdominal: Yes: Normal Bowel Sounds, Non Tender, Flat, Soft Genitourinary: Yes: Within Normal Limits Back: Yes: Normal Inspection Musculoskeletal: Yes: full range of Motion, Gait Steady, Pelvis Stable Extremities: Yes: Normal Capillary Refill, Normal Inspection, Normal Range of Motion, Non-Tender Neurological: Yes: 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 II-XII NML intact, Fully Oriented, Alert, Motor Strength 5/5, Normal Mood/Affect, Normal Response Integumentary: Yes: Normal Color, Dry, Warm Lymphatic: Yes: Within Normal Limits - Diagnostic (1) Alcohol dependence with uncomplicated withdrawal Current Visit: Yes Status: Acute (2) Bipolar disorder Current Visit: Yes Status: Acute (3) Cannabis dependence Current Visit: Yes Status: Acute (4) Cocaine dependence Current Visit: Yes Status: Acute (5) Weight decreased Current Visit: Yes Status: Acute (6) marijuana dependence Current Visit: Yes Status: Acute (7) Acquired immune deficiency syndrome (AIDS) Current Visit: Yes Status: Chronic (8) Chronic nasal congestion Current Visit: Yes Status: Chronic (9) Dry skin dermatitis Current Visit: Yes Status: Chronic (10) First degree hemorrhoids Current Visit: Yes Status: Chronic (11) depression Current Visit: Yes Status: Suspected Cleared for Admission S - Detox or Rehab [facility] Level of Care: Medically Managed Detox Regimen/Protocol: Librium Claeared for Rehab Admission: No Screened but not Admitted - Documentation of Visit Screened but not Admitted: No Breathalyzer - Breathalyzer Breathalyzer: 0 Urine Drug Screen - Test Device Lot number: [id number] Expiration date: 10/10/21 - Control Is test valid?: Yes - Results Drug screen NEGATIVE: No Urine drug screen results: BRENDON-Cocaine Inpatient Rehab Admission - Rehab Decision to Admit Inpatient rehab admission?: No
[2020-02-01] MEDS ORDERED: MENTHOL/PHENOL 1 EACH UD MM PRN (12:49)
[2020-02-01] MEDS ORDERED: METHOCARBAMOL 500 MG TABLET PO PRN (12:49)
[2020-02-01] MEDS ORDERED: NICOTINE POLACRILEX 2 MG GUM BUC PRN (12:49)
[2020-02-01] MEDS ORDERED: BISMUTH SUBSALICYLATE 262 MG/15 ML BTL PO PRN (12:49)
[2020-02-01] MEDS ORDERED: MAG HYDROX/AL HYDROX/SIMETH 30 ML UNIT-DOSE CUP PO PRN (12:49)
[2020-02-01] MEDS ORDERED: MAGNESIUM CITRATE 300 ML BOTTLE PO PRN (12:49)
[2020-02-01] MEDS ORDERED: chlordiazePOXIDE HCL 25 MG CAPSULE PO PRN (12:49)
[2020-02-01] MEDS ORDERED: MAGNESIUM HYDROX 2400MG/30ML ORAL SUSPENSION 30 ML CUP PO PRN (12:49)
[2020-02-01] MEDS ORDERED: ACETAMINOPHEN 325 MG TABLET (FP) PO PRN ×2 (12:49)
[2020-02-01] MEDS ORDERED: IBUPROFEN 400 MG TABLET (FP) PO PRN (12:49)
[2020-02-01] MEDS ORDERED: ONDANSETRON *ODT* 4 MG TABLET SL ONE (12:49)
[2020-02-01 13:28] VITALS: BMI 21.8
[2020-02-01] MEDS ORDERED: ACETAMINOPHEN 325 MG TABLET (FP) ONE (13:40)
[2020-02-01] MEDS ORDERED: hydrOXYzine PAMOATE 25 MG CAPSULE (FP) PO SCH (14:00)
[2020-02-01] MEDS: chlordiazePOXIDE HCL 25 MG CAPSULE PO SCH ×3 (15:30→22:28)
[2020-02-01] MEDS: PRENATAL VITAMINS W/ FOLIC ACID TABLET (FP) PO SCH (15:34)
[2020-02-01] MEDS: NICOTINE 7 MG/24 HOURS TOPICAL PATCH TD SCH (15:36)
--- NOTE | 2020-02-01 16:44 | CONSULT ---
[facility] Psychiatric Consult - Data Date of interview: 02/01/20 Admission source: [facility] Identifying data: Patient is a 59 year old single male, father of two (one son seven months ago), unemployed, domiciled, and is supported by [facility]. This is one of multiple admissions for patient. Patient admitted to for alcohol and cocaine dependence. Substance Abuse History: Smoking Cessation. Smoking history: Never smoked. Have you smoked in the past 12 months: No. Hx Chewing Tobacco Use: No. Initiated information on smoking cessation: No. - Substances abused. Alcohol. Substance route: Oral. Frequency: Daily (2). Amount used: 2 40 oz beers. Age of first use: 13. Date of last use: 02/01/20. Cocaine. Substance route: Smoking. Frequency: Daily. Amount used: $200. Age of first use: 27. Date of last use: 01/31/20. Marijuana/Hashish. Substance route: Smoking. Frequency: Daily. Amount used: $10-20. Age of first use: 13. Date of last use: 01/30/20 Medical History: Hep C, HIV, Eczema Psychiatric History: Patient reports history of one psychiatric hospitalization seven months ago at a facility [facility]. States he became severely depressed due to the of his 38 year old son whom in his sleep due to having a grand mal seizure. Mr. Fischer was diagnosed with MDD and prescribed remeron 30mg HS. Patient reports history of seeing several psychiatrist when admitted to rehab facilities. Patient is currently receiving outpatient psychiatric care at [facility] and is prescribed Remeron 30mg HS. History of two suicide attempts ( walking onto incoming traffic and by gas intoxication). At present patient reports feeling sad and is experiencing difficulty sleeping. Patient denies thoughts or urges to hurt self or others. Physical/Sexual Abuse/Trauma History: Not discussed. Mental Status Exam - Mental Status Exam Alert and Oriented to: Time, Place, Person Cognitive Function: Good Patient Appearance: Well Groomed Mood: Sad, Hopeful Affect: Mood Congruent Patient Behavior: Appropriate, Cooperative Speech Pattern: Appropriate Voice Loudness: Normal Thought Process: Goal Oriented Thought Disorder: Not Present Hallucinations: Denies Suicidal Ideation: Denies Homicidal Ideation: Denies Insight/Judgement: Poor Sleep: Poorly Appetite: Fair Muscle strength/Tone: Normal Gait/Station: Other (Did not observe gait.) Psychiatric Findings - Problem List ([place] 1, 2,3) (1) Depressive disorder Current Visit: Yes Status: Acute (2) Alcohol dependence with uncomplicated withdrawal Current Visit: Yes Status: Acute (3) Cannabis dependence Current Visit: Yes Status: Acute (4) Cocaine dependence Current Visit: Yes Status: Acute (5) Grieving Current Visit: Yes Status: Chronic Comment: 38 year son seven months ago. - Initial Treatment Plan Initial Treatment Plan: Psychoeducation provided. Detoxification in progress. Will order Remeron 30mg HS. Benefits and side effects discussed. Verbal consent given.
[2020-02-01 17:58] LABS: HEMATOCRIT 37.1 % (35.4-49); MCH 28.7 pg (25.7-33.7); MCHC 32.2 g/dl (32.0-35.9); MEAN CELL VOLUME 89.2 fl (80-96); MEAN PLT VOLUME 10.2 fl (7.5-11.1); PLATELET COUNT 164 K/MM3 (134-434); RBC 4.17 M/mm3 (4.00-5.60); RDW 14.1 % (11.9-15.9); WHITE BLOOD COUNT 4.2 K/mm3 (4.0-10.0)
[2020-02-01 18:19] LABS: ALBUMIN 3.2 g/dl (3.4-5.0); BILIRUBIN,TOTAL 0.8 mg/dL (0.2-1); BLOOD UREA NITROGEN 26.5 mg/dL (7-18); CALCIUM 8.4 mg/dL (8.5-10.1); CREATININE 1.5 mg/dL (0.55-1.3); POTASSIUM 4.1 mmol/L (3.5-5.1); TOT PROT 7.3 g/dl (6.4-8.2)
[2020-02-01] MEDS: THIAMINE HCL 100 MG TABLET (FP) PO SCH (22:28)
[2020-02-01] MEDS: MIRTAZAPINE 30 MG TABLET PO SCH (22:28)
[2020-02-01] MEDS: MELATONIN 5 MG TABLETS PO SCH (22:30)
[2020-02-02] MEDS: chlordiazePOXIDE HCL 25 MG CAPSULE PO SCH ×4 (06:08→22:39)
--- NOTE | 2020-02-02 10:34 | PN ---
[facility] CIWA - CIWA Score Nausea/Vomitin-No Nausea/No Vomiting Muscle Tremors: 3 Anxiety: 2 Agitation: 2 Paroxysmal Sweats: 2 Orientation: 0-Oriented Tacttile Disturbances: 0-None Auditory Disturbances: 0-None Visual Disturbances: 0-None Headache: 0-None Present CIWA-Ar Total Score: 9 BHS Progress Note (SOAP) Subjective: sweats shakes poor appetite interrupted sleep Objective: 02/02/20 10:32 Vital Signs Temperature 97.7 F 02/02/20 08:32 Pulse Rate 87 02/02/20 08:32 Respiratory Rate 16 02/02/20 08:32 Blood Pressure 109/66 02/02/20 08:32 O2 Sat by Pulse Oximetry (%) 95 02/02/20 05:44 Laboratory Tests 02/01/20 02/01/20 02/01/20 12:45 13:35 13:35 WBC 4.2 RBC 4.17 Hgb 12.0 Hct 37.1 D MCV 89.2 MCH 28.7 MCHC 32.2 RDW 14.1 Plt Count 164 MPV 10.2 Sodium 139 Potassium 4.1 Chloride 104 Carbon Dioxide 29 Anion Gap 7 L BUN 26.5 H Creatinine 1.5 H Est GFR (CKD-EPI)AfAm 57.41 Est GFR (CKD-EPI)NonAf 49.53 Random Glucose 106 Calcium 8.4 L Total Bilirubin 0.8 AST 22 ALT 16 Alkaline Phosphatase 73 Total Protein 7.3 Albumin 3.2 L Syphilis Serology RPR Titer COVID-19 (FRANCA) Not detected 02/01/20 02/01/20 13:35 13:35 WBC RBC Hgb Hct MCV MCH MCHC RDW Plt Count MPV Sodium Potassium Chloride Carbon Dioxide Anion Gap BUN Creatinine Est GFR (CKD-EPI)AfAm Est GFR (CKD-EPI)NonAf Random Glucose Calcium Total Bilirubin AST ALT Alkaline Phosphatase Total Protein Albumin Syphilis Serology Reactive A* RPR Titer Reactive 1:1 H D COVID-19 (FRANCA) labs noted elevated BUN and Creatinine noted; encourage fluids (water) RPR reactive 1:1 will discuss treatment received aaox3 ambulating no acute distress Assessment: 02/02/20 10:33 withdrawals Plan: continue detox increase fluids ensure bid for lunch and dinner pt states he has been treated and his titer is always 1:1. no further treatment necessary at this time.
[2020-02-02] MEDS: LORATADINE 10 MG TABLET PO SCH (11:16)
[2020-02-02] MEDS: NICOTINE 7 MG/24 HOURS TOPICAL PATCH TD SCH (11:17)
[2020-02-02] MEDS: PRENATAL VITAMINS W/ FOLIC ACID TABLET (FP) PO SCH (11:17)
[2020-02-02] MEDS ORDERED: BICTEGRAV/EMTRICIT/TENOFOV (BIKTARVY) 50-200-25 MG TABLET PO SCH (11:30)
[2020-02-02] MEDS: BICTEGRAV/EMTRICIT/TENOFOV (BIKTARVY) 50-200-25 MG TABLET PO SCH (18:17)
[2020-02-02] MEDS: MELATONIN 5 MG TABLETS PO SCH (22:39)
[2020-02-02] MEDS: MIRTAZAPINE 30 MG TABLET PO SCH (22:40)
[2020-02-02] MEDS: THIAMINE HCL 100 MG TABLET (FP) PO SCH (22:40)
[2020-02-03] MEDS: chlordiazePOXIDE HCL 25 MG CAPSULE PO SCH ×4 (06:04→22:10)
[2020-02-03] MEDS: PRENATAL VITAMINS W/ FOLIC ACID TABLET (FP) PO SCH (11:07)
[2020-02-03] MEDS: NICOTINE 7 MG/24 HOURS TOPICAL PATCH TD SCH (11:07)
[2020-02-03] MEDS: LORATADINE 10 MG TABLET PO SCH (11:07)
[2020-02-03] MEDS: BICTEGRAV/EMTRICIT/TENOFOV (BIKTARVY) 50-200-25 MG TABLET PO SCH (11:08)
--- NOTE | 2020-02-03 18:42 | PN ---
[facility] CIWA - CIWA Score Nausea/Vomitin-No Nausea/No Vomiting Muscle Tremors: None Anxiety: 3 Agitation: 2 Paroxysmal Sweats: No Perspiration Orientation: 0-Oriented Tacttile Disturbances: 2-Mild Itch/Numbness/Burn Auditory Disturbances: 0-None Visual Disturbances: 2-Mild Sensitivity Headache: 0-None Present CIWA-Ar Total Score: 9 S Progress Note (SOAP) Subjective: Tremors, Sweating, Anxious, Interrupted Sleep, Poor Appetite. Objective: Patient A & O X 3, Observed Ambulating on Detox Unit Unassisted. In No Acute Distress. 02/03/20 18:43 Vital Signs Temperature 97.3 F L 02/03/20 12:42 Pulse Rate 90 02/03/20 12:42 Respiratory Rate 16 02/03/20 12:42 Blood Pressure 106/64 02/03/20 12:42 O2 Sat by Pulse Oximetry (%) 97 02/03/20 12:42 Laboratory Tests 02/01/20 02/01/20 02/01/20 12:45 13:35 13:35 WBC 4.2 RBC 4.17 Hgb 12.0 Hct 37.1 D MCV 89.2 MCH 28.7 MCHC 32.2 RDW 14.1 Plt Count 164 MPV 10.2 Sodium 139 Potassium 4.1 Chloride 104 Carbon Dioxide 29 Anion Gap 7 L BUN 26.5 H Creatinine 1.5 H Est GFR (CKD-EPI)AfAm 57.41 Est GFR (CKD-EPI)NonAf 49.53 Random Glucose 106 Calcium 8.4 L Total Bilirubin 0.8 AST 22 ALT 16 Alkaline Phosphatase 73 Total Protein 7.3 Albumin 3.2 L Syphilis Serology RPR Titer COVID-19 (FRANCA) Not detected 02/01/20 02/01/20 13:35 13:35 WBC RBC Hgb Hct MCV MCH MCHC RDW Plt Count MPV Sodium Potassium Chloride Carbon Dioxide Anion Gap BUN Creatinine Est GFR (CKD-EPI)AfAm Est GFR (CKD-EPI)NonAf Random Glucose Calcium Total Bilirubin AST ALT Alkaline Phosphatase Total Protein Albumin Syphilis Serology Reactive A* RPR Titer Reactive 1:1 H D COVID-19 (FRANCA) Lab Results noted. Detox Admission RPR Result noted: Reactive 1:1 (MHATP: Previously Reactive). Patient reports that he completed a full course of Treatment for Syphilis in the past. 02/03/20 18:44 Assessment: 02/03/20 18:43 WITHDRAWAL SYMPTOMS. Plan: Continue Detox. Ensure ordered for Caloric Supplementation (Patient reports that he has been able to consume this beverage in past without difficulty despite reported history of difficulty digesting lactose).
[2020-02-03] MEDS: THIAMINE HCL 100 MG TABLET (FP) PO SCH (22:11)
[2020-02-03] MEDS: MIRTAZAPINE 30 MG TABLET PO SCH (22:11)
[2020-02-03] MEDS: MELATONIN 5 MG TABLETS PO SCH (22:11)
[2020-02-03] MEDS: hydrOXYzine PAMOATE 25 MG CAPSULE (FP) PO PRN (22:12)
[2020-02-04] MEDS ORDERED: chlordiazePOXIDE HCL 10 MG CAPSULE PO PRN
[2020-02-04] MEDS: chlordiazePOXIDE HCL 10 MG CAPSULE PO SCH ×4 (05:26→22:24)
[2020-02-04] MEDS: LORATADINE 10 MG TABLET PO SCH (11:08)
[2020-02-04] MEDS: NICOTINE 7 MG/24 HOURS TOPICAL PATCH TD SCH (11:08)
[2020-02-04] MEDS: BICTEGRAV/EMTRICIT/TENOFOV (BIKTARVY) 50-200-25 MG TABLET PO SCH (11:08)
[2020-02-04] MEDS: PRENATAL VITAMINS W/ FOLIC ACID TABLET (FP) PO SCH (11:09)
--- NOTE | 2020-02-04 12:45 | PN ---
S CIWA - CIWA Score Nausea/Vomitin-No Nausea/No Vomiting Muscle Tremors: 1-None Visible, but [place] Anxiety: 2 Agitation: 2 Paroxysmal Sweats: 1-Minimal Palms Moist Orientation: 0-Oriented Tacttile Disturbances: 0-None Auditory Disturbances: 0-None Visual Disturbances: 0-None Headache: 0-None Present CIWA-Ar Total Score: 6 BHS Progress Note (SOAP) Objective: 02/04/20 12:43 Last Vital Signs Temp Pulse Resp BP Pulse Ox 98.2 F 80 17 122/62 95 02/04/20 08:33 02/04/20 08:33 02/04/20 08:33 02/04/20 08:33 02/04/20 08:33 Laboratory Tests 02/01/20 02/01/20 02/01/20 12:45 13:35 13:35 WBC 4.2 RBC 4.17 Hgb 12.0 Hct 37.1 D MCV 89.2 MCH 28.7 MCHC 32.2 RDW 14.1 Plt Count 164 MPV 10.2 Sodium 139 Potassium 4.1 Chloride 104 Carbon Dioxide 29 Anion Gap 7 L BUN 26.5 H Creatinine 1.5 H Est GFR (CKD-EPI)AfAm 57.41 Est GFR (CKD-EPI)NonAf 49.53 Random Glucose 106 Calcium 8.4 L Total Bilirubin 0.8 AST 22 ALT 16 Alkaline Phosphatase 73 Total Protein 7.3 Albumin 3.2 L Syphilis Serology RPR Titer COVID-19 (FRANCA) Not detected 02/01/20 02/01/20 13:35 13:35 WBC RBC Hgb Hct MCV MCH MCHC RDW Plt Count MPV Sodium Potassium Chloride Carbon Dioxide Anion Gap BUN Creatinine Est GFR (CKD-EPI)AfAm Est GFR (CKD-EPI)NonAf Random Glucose Calcium Total Bilirubin AST ALT Alkaline Phosphatase Total Protein Albumin Syphilis Serology Reactive A* RPR Titer Reactive 1:1 H D COVID-19 (FRANCA) Labs reviewed: OPAL noted, albumin 2.2 (low) Assessment: 02/04/20 12:47 Withdrawal sxs Noted with OPAL and hypoalbuminemia Plan: Continue detox OPAL: encourage PO water hydration, repeat BMP Hypoalbuminemia: encourage diet, continue ensure supplement
[2020-02-04] MEDS: hydrOXYzine PAMOATE 25 MG CAPSULE (FP) PO PRN (18:04)
[2020-02-04] MEDS: THIAMINE HCL 100 MG TABLET (FP) PO SCH (22:24)
[2020-02-04] MEDS: MIRTAZAPINE 30 MG TABLET PO SCH (22:24)
[2020-02-04] MEDS: MELATONIN 5 MG TABLETS PO SCH (22:24)
[2020-02-05] MEDS: chlordiazePOXIDE HCL 10 MG CAPSULE PO SCH ×2 (05:21→17:57)
[2020-02-05] MEDS ORDERED: MASKS NR ONE (06:19)
[2020-02-05] MEDS: PRENATAL VITAMINS W/ FOLIC ACID TABLET (FP) PO SCH (10:40)
[2020-02-05] MEDS: LORATADINE 10 MG TABLET PO SCH (10:40)
[2020-02-05] MEDS: NICOTINE 7 MG/24 HOURS TOPICAL PATCH TD SCH (10:40)
--- NOTE | 2020-02-05 10:50 | PN ---
[facility] CIWA - CIWA Score Nausea/Vomitin-Mild Nausea/No Vomiting Muscle Tremors: 2 Anxiety: 2 Agitation: 1-Slight > Activity Paroxysmal Sweats: No Perspiration Orientation: 0-Oriented Tacttile Disturbances: 0-None Auditory Disturbances: 0-None Visual Disturbances: 0-None Headache: 1-Very Mild CIWA-Ar Total Score: 7 S Progress Note (SOAP) Subjective: alert,irritable,anxious,interrupted sleep Objective: 02/05/20 10:48 Vital Signs Temperature 97.1 F L 02/05/20 09:05 Pulse Rate 93 H 02/05/20 09:05 Respiratory Rate 18 02/05/20 09:05 Blood Pressure 101/58 L 02/05/20 09:05 O2 Sat by Pulse Oximetry (%) 96 02/05/20 05:15 Assessment: 02/05/20 10:49 withdrawal symptom, Plan: continue detox encourage oral fluid,cmp pending,discharge in am
[2020-02-05] MEDS: BICTEGRAV/EMTRICIT/TENOFOV (BIKTARVY) 50-200-25 MG TABLET PO SCH (15:16)
[2020-02-05 16:20] LABS: BLOOD UREA NITROGEN 25.8 mg/dL (7-18); CALCIUM 9.3 mg/dL (8.5-10.1); CREATININE 1.3 mg/dL (0.55-1.3); POTASSIUM 4.7 mmol/L (3.5-5.1)
[2020-02-05] MEDS: hydrOXYzine PAMOATE 25 MG CAPSULE (FP) PO PRN (21:15)
[2020-02-05] MEDS: MIRTAZAPINE 30 MG TABLET PO SCH (21:15)
[2020-02-05] MEDS: THIAMINE HCL 100 MG TABLET (FP) PO SCH (21:15)
[2020-02-05] MEDS: MELATONIN 5 MG TABLETS PO SCH (21:29)
[2020-02-06] MEDS ORDERED: chlordiazePOXIDE HCL 10 MG CAPSULE PO ONE (05:00)
[2020-02-06 09:26] VITALS: BP 113/77; PULSE 106; TEMP 97.8
--- NOTE | 2020-02-06 10:19 | PN ---
[facility] CIWA - CIWA Score Nausea/Vomitin-No Nausea/No Vomiting Muscle Tremors: None Anxiety: 1-Mildly Anxious Agitation: 0-Normal Activity Paroxysmal Sweats: No Perspiration Orientation: 0-Oriented Tacttile Disturbances: 0-None Auditory Disturbances: 0-None Visual Disturbances: 0-None Headache: 0-None Present CIWA-Ar Total Score: 1 BHS Progress Note (SOAP) Subjective: alert,no complaint Objective: 02/06/20 10:16 Vital Signs Temperature 97.8 F 02/06/20 09:04 Pulse Rate 106 H 02/06/20 09:04 Respiratory Rate 19 02/06/20 09:04 Blood Pressure 113/77 02/06/20 09:04 O2 Sat by Pulse Oximetry (%) 97 02/06/20 05:19 Laboratory Results - last 24 hr 02/05/20 11:38 Sodium 140 Potassium 4.7 Chloride 102 Carbon Dioxide 33 H Anion Gap 6 L BUN 25.8 H Creatinine 1.3 Est GFR (CKD-EPI)AfAm 68.25 Est GFR (CKD-EPI)NonAf 58.89 Random Glucose 56 L Calcium 9.3 02/06/20 10:26 alert,oriented x 3 ambulation on the unit refuse bgm test Assessment: 02/06/20 10:26 detox completed,no withdrawal symptom Plan: stable for discharge today,follow up with after care program as arrangement [facility]
--- NOTE | 2020-02-06 10:30 | DS ---
[facility] Detox Discharge Summary Admission Date: 02/01/20 Discharge Date: 02/06/20 - History Present History: Alcohol Dependence, Cannabis Dependence, Cocaine Dependence Additional Comments: alert,oriented x 3 ambulation on the unit lung clear bilaterally on auscultation abdomen soft,no distension,no pain no swelling of leg detox completed,no withdrawal symptom stable for discharge today follow up with after [facility] ,[facility] total time spending on discharge 35 minuted Pertinent Past History: hepatitis c hiv depression - Physical Exam Results Vital Signs: Vital Signs Temperature 97.8 F 02/06/20 09:04 Pulse Rate 106 H 02/06/20 09:04 Respiratory Rate 19 02/06/20 09:04 Blood Pressure 113/77 02/06/20 09:04 O2 Sat by Pulse Oximetry (%) 97 02/06/20 05:19 Pertinent Admission Physical Exam Findings: withdrawal signs and symptom Laboratory Last Values WBC 4.2 K/mm3 (4.0-10.0) 02/01/20 13:35 RBC 4.17 M/mm3 (4.00-5.60) 02/01/20 13:35 Hgb 12.0 GM/dL (11.7-16.9) 02/01/20 13:35 Hct 37.1 % (35.4-49) D 02/01/20 13:35 MCV 89.2 fl (80-96) 02/01/20 13:35 MCH 28.7 pg (25.7-33.7) 02/01/20 13:35 MCHC 32.2 g/dl (32.0-35.9) 02/01/20 13:35 RDW 14.1 % (11.9-15.9) 02/01/20 13:35 Plt Count 164 K/MM3 (134-434) 02/01/20 13:35 MPV 10.2 fl (7.5-11.1) 02/01/20 13:35 Sodium 140 mmol/L (136-145) 02/05/20 11:38 Potassium 4.7 mmol/L (3.5-5.1) 02/05/20 11:38 Chloride 102 mmol/L (98-107) 02/05/20 11:38 Carbon Dioxide 33 mmol/L (21-32) H 02/05/20 11:38 Anion Gap 6 MMOL/L (8-16) L 02/05/20 11:38 BUN 25.8 mg/dL (7-18) H 02/05/20 11:38 Creatinine 1.3 mg/dL (0.55-1.3) 02/05/20 11:38 Est GFR (CKD-EPI)AfAm 68.25 02/05/20 11:38 Est GFR (CKD-EPI)NonAf 58.89 02/05/20 11:38 Random Glucose 56 mg/dL (74-106) L 02/05/20 11:38 Calcium 9.3 mg/dL (8.5-10.1) 02/05/20 11:38 Total Bilirubin 0.8 mg/dL (0.2-1) 02/01/20 13:35 AST 22 U/L (15-37) 02/01/20 13:35 ALT 16 U/L (13-61) 02/01/20 13:35 Alkaline Phosphatase 73 U/L (45-117) 02/01/20 13:35 Total Protein 7.3 g/dl (6.4-8.2) 02/01/20 13:35 Albumin 3.2 g/dl (3.4-5.0) L 02/01/20 13:35 Syphilis Serology Reactive (NONREACTIVE) A* 02/01/20 13:35 RPR Titer Reactive 1:1 (NONREACTIVE) H D 02/01/20 13:35 COVID-19 (FRANCA) Not detected (Not Detected) 02/01/20 12:45 adequately treated in syphilis - Treatment Hospital Course: Detox Protocol Followed, Detoxed Safely, Responded well, Discharged Condition Good, Rehab Referral Accepted - Medication Discharge Medications: Ambulatory Orders Mirtazapine [Remeron -] 30 mg PO HS 03/04/17 Bictegrav/Emtricit/Tenofov Ala [Biktarvy 50-200-25 mg Tablet] 1 each PO DAILY 02/01/20
[2020-02-06] MEDS: LORATADINE 10 MG TABLET PO SCH (11:03)
[2020-02-06] MEDS: PRENATAL VITAMINS W/ FOLIC ACID TABLET (FP) PO SCH (11:03)
[2020-02-06] MEDS: BICTEGRAV/EMTRICIT/TENOFOV (BIKTARVY) 50-200-25 MG TABLET PO SCH (11:03)
[2020-02-06] MEDS: NICOTINE 7 MG/24 HOURS TOPICAL PATCH TD SCH (11:04)
--- NOTE | 2020-02-06 13:31 | PN ---
S Progress Note Note: is going to rehab at [facility] instead of [facility]
== END 2020-02-06 13:14 | disposition other institution (70) | DRG 774 ==
LOC: YASAS 11:19 → Y6N 13:27
PROVIDERS: ADMIT Allergy & Immunology; ATTEND Allergy & Immunology
PROC: HZ2ZZZZ Detoxification Services for Substance Abuse Treatment (ICD-10-PCS; principal; 2020-02-01)
DX: F10.230 Alcohol dependence with withdrawal, uncomplicated (principal); F14.20 Cocaine dependence, uncomplicated; F12.20 Cannabis dependence, uncomplicated; F31.9 Bipolar disorder, unspecified; B20 Human immunodeficiency virus [HIV] disease; N17.9 Acute kidney failure, unspecified; R77.0 Abnormality of albumin; R00.0 Tachycardia, unspecified; R63.4 Abnormal weight loss; L85.3 Xerosis cutis; K64.0 First degree hemorrhoids; Z63.4 Disappearance and death of family member; Z91.011 Allergy to milk products
CPT/HCPCS: 36415; 80048; 80053; 85027; 86593; 86780; U0003

== ENCOUNTER 2020-02-06 13:59 | Inpatient (IN) | payer OTHER ==
--- NOTE | 2020-02-06 14:05 | HP ---
[facility] Rehab Assess/Revision - Admission History Admitted to Rehab from: [facility] Date of Admission to Rehab: 02/06/20 - Findings Detox History & Physical reviewed: Yes Concur with findings: Yes Comments/Additional Findings: for rehab as protocol Inpatient Rehab Admission - Rehab Decision to Admit Inpatient rehab admission?: Yes - Initial Determination Are CD services needed?: Yes Free of communicable disease: Yes Not in need of hospitalization: Yes - Rehab Admission Criteria Previous failed treatment: Yes Poor recovery environment: Yes Comorbidities: Yes Lacks judgement: No Patient is meeting Inpatient Rehab admission criteria:: Yes
[2020-02-06] MEDS ORDERED: NICOTINE POLACRILEX 2 MG GUM BUC PRN (14:55)
[2020-02-06] MEDS ORDERED: MAGNESIUM CITRATE 300 ML BOTTLE PO PRN (14:55)
[2020-02-06] MEDS ORDERED: guaiFENesin 200 MG/10 ML 10 ML UNIT-DOSE CUPS PO PRN (14:55)
[2020-02-06] MEDS ORDERED: MAG HYDROX/AL HYDROX/SIMETH 30 ML UNIT-DOSE CUP PO PRN (14:55)
[2020-02-06] MEDS ORDERED: LOPERAMIDE HCL 2 MG CAPSULE PO PRN (14:55)
[2020-02-06] MEDS ORDERED: MAGNESIUM HYDROX 2400MG/30ML ORAL SUSPENSION 30 ML CUP PO PRN (14:55)
[2020-02-06] MEDS ORDERED: MENTHOL/PHENOL 1 EACH UD MM PRN (14:55)
[2020-02-06] MEDS: THIAMINE HCL 100 MG TABLET (FP) PO SCH (21:31)
[2020-02-06] MEDS: MELATONIN 5 MG TABLETS PO SCH (21:31)
[2020-02-06] MEDS: hydrOXYzine PAMOATE 25 MG CAPSULE (FP) PO PRN (21:32)
[2020-02-07] MEDS: BICTEGRAV/EMTRICIT/TENOFOV (BIKTARVY) 50-200-25 MG TABLET PO SCH (08:11)
[2020-02-07] MEDS: PRENATAL VITAMINS W/ FOLIC ACID TABLET (FP) PO SCH (10:25)
[2020-02-07] MEDS: hydrOXYzine PAMOATE 25 MG CAPSULE (FP) PO PRN ×2 (10:26→21:14)
[2020-02-07] MEDS: NICOTINE 7 MG/24 HOURS TOPICAL PATCH TD SCH (10:27)
[2020-02-07] MEDS: THIAMINE HCL 100 MG TABLET (FP) PO SCH (21:14)
[2020-02-07] MEDS: MELATONIN 5 MG TABLETS PO SCH (21:14)
[2020-02-08] MEDS: BICTEGRAV/EMTRICIT/TENOFOV (BIKTARVY) 50-200-25 MG TABLET PO SCH (07:03)
[2020-02-08] MEDS: NICOTINE 7 MG/24 HOURS TOPICAL PATCH TD SCH (10:25)
[2020-02-08] MEDS: PRENATAL VITAMINS W/ FOLIC ACID TABLET (FP) PO SCH (10:25)
[2020-02-08] MEDS: THIAMINE HCL 100 MG TABLET (FP) PO SCH (21:47)
[2020-02-08] MEDS: MELATONIN 5 MG TABLETS PO SCH (21:47)
[2020-02-09] MEDS: BICTEGRAV/EMTRICIT/TENOFOV (BIKTARVY) 50-200-25 MG TABLET PO SCH (07:12)
[2020-02-09] MEDS: PRENATAL VITAMINS W/ FOLIC ACID TABLET (FP) PO SCH (09:42)
[2020-02-09] MEDS: hydrOXYzine PAMOATE 25 MG CAPSULE (FP) PO PRN (09:42)
[2020-02-09] MEDS: NICOTINE 7 MG/24 HOURS TOPICAL PATCH TD SCH (09:43)
[2020-02-09] MEDS: MELATONIN 5 MG TABLETS PO SCH (21:16)
[2020-02-09] MEDS: THIAMINE HCL 100 MG TABLET (FP) PO SCH (21:16)
[2020-02-10] MEDS: BICTEGRAV/EMTRICIT/TENOFOV (BIKTARVY) 50-200-25 MG TABLET PO SCH (07:33)
[2020-02-10] MEDS: PRENATAL VITAMINS W/ FOLIC ACID TABLET (FP) PO SCH (10:47)
[2020-02-10] MEDS: NICOTINE 7 MG/24 HOURS TOPICAL PATCH TD SCH (10:47)
[2020-02-10] MEDS ORDERED: MASKS NR ONE (17:37)
[2020-02-10] MEDS: hydrOXYzine PAMOATE 25 MG CAPSULE (FP) PO PRN (21:40)
[2020-02-10] MEDS: MELATONIN 5 MG TABLETS PO SCH (21:40)
[2020-02-10] MEDS: THIAMINE HCL 100 MG TABLET (FP) PO SCH (21:40)
[2020-02-11] MEDS: BICTEGRAV/EMTRICIT/TENOFOV (BIKTARVY) 50-200-25 MG TABLET PO SCH (07:13)
[2020-02-11] MEDS: PRENATAL VITAMINS W/ FOLIC ACID TABLET (FP) PO SCH (09:52)
[2020-02-11] MEDS: NICOTINE 7 MG/24 HOURS TOPICAL PATCH TD SCH (09:52)
[2020-02-11] MEDS: MELATONIN 5 MG TABLETS PO SCH (21:09)
[2020-02-11] MEDS: THIAMINE HCL 100 MG TABLET (FP) PO SCH (21:09)
[2020-02-11] MEDS: hydrOXYzine PAMOATE 25 MG CAPSULE (FP) PO PRN (21:09)
[2020-02-12] MEDS: BICTEGRAV/EMTRICIT/TENOFOV (BIKTARVY) 50-200-25 MG TABLET PO SCH (07:00)
[2020-02-12] MEDS: PRENATAL VITAMINS W/ FOLIC ACID TABLET (FP) PO SCH (10:17)
[2020-02-12] MEDS: NICOTINE 7 MG/24 HOURS TOPICAL PATCH TD SCH (10:17)
[2020-02-12] MEDS: hydrOXYzine PAMOATE 25 MG CAPSULE (FP) PO PRN (21:31)
[2020-02-12] MEDS: THIAMINE HCL 100 MG TABLET (FP) PO SCH (21:31)
[2020-02-12] MEDS: MELATONIN 5 MG TABLETS PO SCH (21:31)
[2020-02-13] MEDS: BICTEGRAV/EMTRICIT/TENOFOV (BIKTARVY) 50-200-25 MG TABLET PO SCH (07:02)
[2020-02-13] MEDS: hydrOXYzine PAMOATE 25 MG CAPSULE (FP) PO PRN ×2 (10:54→21:07)
[2020-02-13] MEDS: PRENATAL VITAMINS W/ FOLIC ACID TABLET (FP) PO SCH (10:55)
[2020-02-13] MEDS: NICOTINE 7 MG/24 HOURS TOPICAL PATCH TD SCH (10:55)
[2020-02-13] MEDS: THIAMINE HCL 100 MG TABLET (FP) PO SCH (21:07)
[2020-02-13] MEDS: MELATONIN 5 MG TABLETS PO SCH (21:07)
[2020-02-14] MEDS: BICTEGRAV/EMTRICIT/TENOFOV (BIKTARVY) 50-200-25 MG TABLET PO SCH (07:00)
[2020-02-14] MEDS: NICOTINE 7 MG/24 HOURS TOPICAL PATCH TD SCH (10:19)
[2020-02-14] MEDS: PRENATAL VITAMINS W/ FOLIC ACID TABLET (FP) PO SCH (10:19)
[2020-02-14] MEDS: hydrOXYzine PAMOATE 25 MG CAPSULE (FP) PO PRN ×2 (10:19→21:31)
[2020-02-14] MEDS: THIAMINE HCL 100 MG TABLET (FP) PO SCH (21:31)
[2020-02-14] MEDS: MELATONIN 5 MG TABLETS PO SCH (21:31)
[2020-02-15] MEDS: BICTEGRAV/EMTRICIT/TENOFOV (BIKTARVY) 50-200-25 MG TABLET PO SCH (07:41)
[2020-02-15] MEDS: NICOTINE 7 MG/24 HOURS TOPICAL PATCH TD SCH (09:37)
[2020-02-15] MEDS: PRENATAL VITAMINS W/ FOLIC ACID TABLET (FP) PO SCH (09:37)
[2020-02-15] MEDS: hydrOXYzine PAMOATE 25 MG CAPSULE (FP) PO PRN (09:37)
--- NOTE | 2020-02-15 15:45 | CONSULT ---
[facility] Psychiatric Consult - Data Date of interview: 02/15/20 Admission source: [facility] Identifying data: Patient is a 59 year old single male, father of two (one son seven months ago), unemployed, domiciled, and is supported by [facility]. This is one of multiple admissions for patient. Patient admitted to [facility] for alcohol and cocaine dependence. Substance Abuse History: Smoking Cessation. Smoking history: Never smoked. Have you smoked in the past 12 months: No. Hx Chewing Tobacco Use: No. Initiated information on smoking cessation: No. - Substances abused. Alcohol. Substance route: Oral. Frequency: Daily (2). Amount used: 2 40 oz beers. Age of first use: 13. Date of last use: 02/01/20. Cocaine. Substance route: Smoking. Frequency: Daily. Amount used: $200. Age of first use: 27. Date of last use: 01/31/20. Marijuana/Hashish. Substance route: Smoking. Frequency: Daily. Amount used: $10-20. Age of first use: 13. Date of last use: 01/30/20 Medical History: Hep C, HIV, Eczema Psychiatric History: Mr. Fischer was seen in detox by staff writer. History remains consistent. Patient reports history of one psychiatric hospitalization seven months ago at a facility [facility] with [facility] located [facility]. History of depression and anxiety. States that he became severely depressed due to the of his 38 year old son whom in his sleep after having a grand mal seizure. Mr. Fischer was diagnosed with MDD and prescribed remeron 30mg HS. Patient reports history of seeing several psychiatrist when admitted to rehab facilities. Patient is currently receiving outpatient psychiatric care at [facility] and is prescribed Remeron 30mg HS. History of two suicide attempts ( walking onto incoming traffic and by gas intoxication). At present patient reports feeling much better in rehab although is reporting difficulty sleeping. Stated to staff writer that remeron 30mg was ineffective and is requesting trazodone for insomnia. Physical/Sexual Abuse/Trauma History: denies. Mental Status Exam - Mental Status Exam Alert and Oriented to: Time, Place, Person Cognitive Function: Good Patient Appearance: Well Groomed Mood: Hopeful Affect: Appropriate Patient Behavior: Appropriate, Cooperative Speech Pattern: Appropriate Voice Loudness: Normal Thought Process: Goal Oriented Thought Disorder: Not Present Hallucinations: Denies Suicidal Ideation: Denies Homicidal Ideation: Denies Insight/Judgement: Poor Sleep: Poorly Appetite: Fair Muscle strength/Tone: Normal Gait/Station: Normal Psychiatric Findings - Problem List ([place] 1, 2,3) (1) Alcohol dependence Current Visit: Yes Status: Acute (2) Cannabis dependence Current Visit: Yes Status: Acute (3) Cocaine dependence Current Visit: Yes Status: Acute (4) Depressive disorder Current Visit: No Status: Chronic (5) Substance-induced sleep disorder Current Visit: Yes Status: Acute - Initial Treatment Plan Initial Treatment Plan: Psychoeducation provided. Rehab in progress. Will order trazodone 50mg HS. Benefits and side effects discussed. Verbal consent given.
[2020-02-15] MEDS ORDERED: MASKS NR ONE (17:35)
[2020-02-15] MEDS: THIAMINE HCL 100 MG TABLET (FP) PO SCH (21:31)
[2020-02-15] MEDS: traZODone HCL 50 MG TABLET (FP) PO SCH (21:32)
[2020-02-15] MEDS: MELATONIN 5 MG TABLETS PO SCH (21:32)
[2020-02-16] MEDS: BICTEGRAV/EMTRICIT/TENOFOV (BIKTARVY) 50-200-25 MG TABLET PO SCH (07:03)
[2020-02-16] MEDS: PRENATAL VITAMINS W/ FOLIC ACID TABLET (FP) PO SCH (10:51)
[2020-02-16] MEDS: hydrOXYzine PAMOATE 25 MG CAPSULE (FP) PO PRN (10:51)
[2020-02-16] MEDS: NICOTINE 7 MG/24 HOURS TOPICAL PATCH TD SCH (10:52)
[2020-02-16] MEDS: traZODone HCL 50 MG TABLET (FP) PO SCH (22:12)
[2020-02-16] MEDS: MELATONIN 5 MG TABLETS PO SCH (22:12)
[2020-02-16] MEDS: THIAMINE HCL 100 MG TABLET (FP) PO SCH (22:12)
[2020-02-17] MEDS: BICTEGRAV/EMTRICIT/TENOFOV (BIKTARVY) 50-200-25 MG TABLET PO SCH (06:59)
[2020-02-17] MEDS: NICOTINE 7 MG/24 HOURS TOPICAL PATCH TD SCH (10:26)
[2020-02-17] MEDS: PRENATAL VITAMINS W/ FOLIC ACID TABLET (FP) PO SCH (10:26)
[2020-02-17] MEDS: traZODone HCL 50 MG TABLET (FP) PO SCH (21:22)
[2020-02-17] MEDS: THIAMINE HCL 100 MG TABLET (FP) PO SCH (21:22)
[2020-02-17] MEDS: MELATONIN 5 MG TABLETS PO SCH (21:22)
[2020-02-18] MEDS: BICTEGRAV/EMTRICIT/TENOFOV (BIKTARVY) 50-200-25 MG TABLET PO SCH (07:23)
[2020-02-18] MEDS: PRENATAL VITAMINS W/ FOLIC ACID TABLET (FP) PO SCH (11:00)
[2020-02-18] MEDS: hydrOXYzine PAMOATE 25 MG CAPSULE (FP) PO PRN (11:00)
[2020-02-18] MEDS: NICOTINE 7 MG/24 HOURS TOPICAL PATCH TD SCH (11:01)
[2020-02-18] MEDS: MELATONIN 5 MG TABLETS PO SCH (21:57)
[2020-02-18] MEDS: traZODone HCL 50 MG TABLET (FP) PO SCH (21:57)
[2020-02-18] MEDS: THIAMINE HCL 100 MG TABLET (FP) PO SCH (21:58)
[2020-02-19] MEDS: BICTEGRAV/EMTRICIT/TENOFOV (BIKTARVY) 50-200-25 MG TABLET PO SCH (08:43)
[2020-02-19] MEDS: hydrOXYzine PAMOATE 25 MG CAPSULE (FP) PO PRN (10:42)
[2020-02-19] MEDS: PRENATAL VITAMINS W/ FOLIC ACID TABLET (FP) PO SCH (10:42)
[2020-02-19] MEDS: NICOTINE 7 MG/24 HOURS TOPICAL PATCH TD SCH (10:44)
[2020-02-19] MEDS: traZODone HCL 50 MG TABLET (FP) PO SCH (22:14)
[2020-02-19] MEDS: THIAMINE HCL 100 MG TABLET (FP) PO SCH (22:14)
[2020-02-19] MEDS: MELATONIN 5 MG TABLETS PO SCH (22:14)
[2020-02-20] MEDS: BICTEGRAV/EMTRICIT/TENOFOV (BIKTARVY) 50-200-25 MG TABLET PO SCH (07:11)
[2020-02-20] MEDS: NICOTINE 7 MG/24 HOURS TOPICAL PATCH TD SCH (10:43)
[2020-02-20] MEDS: PRENATAL VITAMINS W/ FOLIC ACID TABLET (FP) PO SCH (10:46)
--- NOTE | 2020-02-20 15:17 | PN ---
[facility] Progress Note Note: Patient is currently on Trazadone 50 mg/hs for insomnia. He claims to experience nightmares with med and requests to switch to Remeron 15 mg/hs to which he responded well in the past
[2020-02-20] MEDS: MIRTAZAPINE 15 MG TABLET (FP) PO SCH (22:04)
[2020-02-20] MEDS: THIAMINE HCL 100 MG TABLET (FP) PO SCH (22:05)
[2020-02-20] MEDS: MELATONIN 5 MG TABLETS PO SCH (22:05)
[2020-02-21] MEDS: BICTEGRAV/EMTRICIT/TENOFOV (BIKTARVY) 50-200-25 MG TABLET PO SCH (07:04)
[2020-02-21] MEDS: NICOTINE 7 MG/24 HOURS TOPICAL PATCH TD SCH (10:42)
[2020-02-21] MEDS: PRENATAL VITAMINS W/ FOLIC ACID TABLET (FP) PO SCH (10:42)
[2020-02-21] MEDS: MIRTAZAPINE 15 MG TABLET (FP) PO SCH (23:03)
[2020-02-21] MEDS: THIAMINE HCL 100 MG TABLET (FP) PO SCH (23:03)
[2020-02-21] MEDS: MELATONIN 5 MG TABLETS PO SCH (23:04)
[2020-02-22] MEDS: BICTEGRAV/EMTRICIT/TENOFOV (BIKTARVY) 50-200-25 MG TABLET PO SCH (06:59)
[2020-02-22] MEDS: NICOTINE 7 MG/24 HOURS TOPICAL PATCH TD SCH (10:48)
[2020-02-22] MEDS: PRENATAL VITAMINS W/ FOLIC ACID TABLET (FP) PO SCH (10:48)
[2020-02-22] MEDS: THIAMINE HCL 100 MG TABLET (FP) PO SCH (21:30)
[2020-02-22] MEDS: MELATONIN 5 MG TABLETS PO SCH (21:30)
[2020-02-22] MEDS: MIRTAZAPINE 15 MG TABLET (FP) PO SCH (21:30)
[2020-02-23] MEDS: BICTEGRAV/EMTRICIT/TENOFOV (BIKTARVY) 50-200-25 MG TABLET PO SCH (07:46)
[2020-02-23] MEDS: NICOTINE 7 MG/24 HOURS TOPICAL PATCH TD SCH (10:09)
[2020-02-23] MEDS: PRENATAL VITAMINS W/ FOLIC ACID TABLET (FP) PO SCH (10:09)
[2020-02-23] MEDS: THIAMINE HCL 100 MG TABLET (FP) PO SCH (21:11)
[2020-02-23] MEDS: MIRTAZAPINE 15 MG TABLET (FP) PO SCH (21:11)
[2020-02-23] MEDS: MELATONIN 5 MG TABLETS PO SCH (21:11)
[2020-02-24] MEDS: BICTEGRAV/EMTRICIT/TENOFOV (BIKTARVY) 50-200-25 MG TABLET PO SCH (09:00)
[2020-02-24] MEDS: NICOTINE 7 MG/24 HOURS TOPICAL PATCH TD SCH (10:04)
[2020-02-24] MEDS: PRENATAL VITAMINS W/ FOLIC ACID TABLET (FP) PO SCH (10:04)
[2020-02-24] MEDS: MELATONIN 5 MG TABLETS PO SCH (21:50)
[2020-02-24] MEDS: THIAMINE HCL 100 MG TABLET (FP) PO SCH (21:51)
[2020-02-24] MEDS: MIRTAZAPINE 15 MG TABLET (FP) PO SCH (21:51)
[2020-02-25] MEDS: BICTEGRAV/EMTRICIT/TENOFOV (BIKTARVY) 50-200-25 MG TABLET PO SCH (09:00)
[2020-02-25] MEDS: NICOTINE 7 MG/24 HOURS TOPICAL PATCH TD SCH (09:56)
[2020-02-25] MEDS: PRENATAL VITAMINS W/ FOLIC ACID TABLET (FP) PO SCH (09:56)
[2020-02-25] MEDS: P-EPHED 60MG/TRIPROLIDI 2.5MG TABLET PO PRN (14:32)
[2020-02-25] MEDS: MELATONIN 5 MG TABLETS PO SCH (22:03)
[2020-02-25] MEDS: THIAMINE HCL 100 MG TABLET (FP) PO SCH (22:03)
[2020-02-25] MEDS: MIRTAZAPINE 15 MG TABLET (FP) PO SCH (22:03)
[2020-02-26] MEDS: BICTEGRAV/EMTRICIT/TENOFOV (BIKTARVY) 50-200-25 MG TABLET PO SCH (07:12)
[2020-02-26] MEDS: hydrOXYzine PAMOATE 25 MG CAPSULE (FP) PO PRN (09:52)
[2020-02-26] MEDS: PRENATAL VITAMINS W/ FOLIC ACID TABLET (FP) PO SCH (09:52)
[2020-02-26] MEDS: ACETAMINOPHEN 325 MG TABLET (FP) PO PRN (09:54)
[2020-02-26] MEDS: NICOTINE 7 MG/24 HOURS TOPICAL PATCH TD SCH (09:55)
[2020-02-26] MEDS: TOLNAFTATE 1% CREAM 15 GM TUBE TP SCH ×2 (10:37→21:11)
[2020-02-26] MEDS: MIRTAZAPINE 15 MG TABLET (FP) PO SCH (21:11)
[2020-02-26] MEDS: THIAMINE HCL 100 MG TABLET (FP) PO SCH (21:11)
[2020-02-26] MEDS: MELATONIN 5 MG TABLETS PO SCH (21:11)
[2020-02-27] MEDS: BICTEGRAV/EMTRICIT/TENOFOV (BIKTARVY) 50-200-25 MG TABLET PO SCH (07:07)
[2020-02-27] MEDS: hydrOXYzine PAMOATE 25 MG CAPSULE (FP) PO PRN (09:50)
[2020-02-27] MEDS: PRENATAL VITAMINS W/ FOLIC ACID TABLET (FP) PO SCH (09:50)
[2020-02-27] MEDS: TOLNAFTATE 1% CREAM 15 GM TUBE TP SCH ×2 (09:51→21:39)
[2020-02-27] MEDS: NICOTINE 7 MG/24 HOURS TOPICAL PATCH TD SCH (09:51)
--- NOTE | 2020-02-27 14:18 | PN ---
S Progress Note Note: C/o right eye pain for several hours. Patient reports Pain is localized to the right eye, radiating to right side of head and above the right eyebrow. He took actifed (thinking it may have been sinus pain) w/o relief. Denies injury to eye, loss of vision, flashes of light, tearing, drainage, crusting. Reports chronic difficulty with vision and uses eyeglasses bought at the drug store (not with building services supervisor prescription). Vital Signs Period Temp Pulse Resp BP Sys/Ahumada Pulse Ox Last 24 Hr 97.3 F-97.8 F 82 18 112/68 96-97 General: found resting comfortably in bed, asleep HEENTM: Eye: sclera Right eye is reddened, eyelid droop on right. No facial edema noted. Normocephalic, Right eye pain Ordered eye gtts Encouraged patient to take tylenol Clinically monitor/
[2020-02-27] MEDS ORDERED: TETRAHYDROZOLINE HCL EYE DROPS OS PRN (14:23)
[2020-02-27] MEDS ORDERED: TETRAHYDROZOLINE HCL EYE DROPS OD PRN (14:48)
[2020-02-27] MEDS: ACETAMINOPHEN 325 MG TABLET (FP) PO PRN (15:35)
[2020-02-27] MEDS: MIRTAZAPINE 15 MG TABLET (FP) PO SCH (21:39)
[2020-02-27] MEDS: MELATONIN 5 MG TABLETS PO SCH (21:39)
[2020-02-27] MEDS: THIAMINE HCL 100 MG TABLET (FP) PO SCH (21:39)
[2020-02-28] MEDS: BICTEGRAV/EMTRICIT/TENOFOV (BIKTARVY) 50-200-25 MG TABLET PO SCH (07:22)
[2020-02-28] MEDS: PRENATAL VITAMINS W/ FOLIC ACID TABLET (FP) PO SCH (10:05)
[2020-02-28] MEDS: hydrOXYzine PAMOATE 25 MG CAPSULE (FP) PO PRN (10:05)
[2020-02-28] MEDS: NICOTINE 7 MG/24 HOURS TOPICAL PATCH TD SCH (10:05)
[2020-02-28] MEDS: TOLNAFTATE 1% CREAM 15 GM TUBE TP SCH ×2 (10:06→21:49)
[2020-02-28] MEDS: ACETAMINOPHEN 325 MG TABLET (FP) PO PRN (15:35)
[2020-02-28] MEDS: P-EPHED 60MG/TRIPROLIDI 2.5MG TABLET PO PRN (15:41)
[2020-02-28] MEDS: THIAMINE HCL 100 MG TABLET (FP) PO SCH (21:49)
[2020-02-28] MEDS: MIRTAZAPINE 15 MG TABLET (FP) PO SCH (21:49)
[2020-02-28] MEDS: MELATONIN 5 MG TABLETS PO SCH (21:49)
[2020-02-29] MEDS: BICTEGRAV/EMTRICIT/TENOFOV (BIKTARVY) 50-200-25 MG TABLET PO SCH (07:48)
[2020-02-29] MEDS: TOLNAFTATE 1% CREAM 15 GM TUBE TP SCH ×2 (10:19→21:14)
[2020-02-29] MEDS: NICOTINE 7 MG/24 HOURS TOPICAL PATCH TD SCH (10:19)
[2020-02-29] MEDS: PRENATAL VITAMINS W/ FOLIC ACID TABLET (FP) PO SCH (10:19)
[2020-02-29] MEDS: P-EPHED 60MG/TRIPROLIDI 2.5MG TABLET PO PRN (10:24)
[2020-02-29] MEDS: ACETAMINOPHEN 325 MG TABLET (FP) PO PRN (10:25)
[2020-02-29] MEDS: THIAMINE HCL 100 MG TABLET (FP) PO SCH (21:14)
[2020-02-29] MEDS: MIRTAZAPINE 15 MG TABLET (FP) PO SCH (21:14)
[2020-02-29] MEDS: MELATONIN 5 MG TABLETS PO SCH (21:14)
[2020-03-01] MEDS: P-EPHED 60MG/TRIPROLIDI 2.5MG TABLET PO PRN (06:15)
[2020-03-01] MEDS: ACETAMINOPHEN 325 MG TABLET (FP) PO PRN (06:15)
[2020-03-01] MEDS: BICTEGRAV/EMTRICIT/TENOFOV (BIKTARVY) 50-200-25 MG TABLET PO SCH (08:07)
[2020-03-01] MEDS: NICOTINE 7 MG/24 HOURS TOPICAL PATCH TD SCH (10:23)
[2020-03-01] MEDS: TOLNAFTATE 1% CREAM 15 GM TUBE TP SCH ×2 (10:23→21:15)
[2020-03-01] MEDS: PRENATAL VITAMINS W/ FOLIC ACID TABLET (FP) PO SCH (10:23)
[2020-03-01] MEDS: THIAMINE HCL 100 MG TABLET (FP) PO SCH (21:14)
[2020-03-01] MEDS: MIRTAZAPINE 15 MG TABLET (FP) PO SCH (21:14)
[2020-03-01] MEDS: MELATONIN 5 MG TABLETS PO SCH (21:15)
[2020-03-02] MEDS: BICTEGRAV/EMTRICIT/TENOFOV (BIKTARVY) 50-200-25 MG TABLET PO SCH (08:10)
[2020-03-02] MEDS: PRENATAL VITAMINS W/ FOLIC ACID TABLET (FP) PO SCH (09:38)
[2020-03-02] MEDS: TOLNAFTATE 1% CREAM 15 GM TUBE TP SCH ×2 (09:39→21:44)
[2020-03-02] MEDS: NICOTINE 7 MG/24 HOURS TOPICAL PATCH TD SCH (09:39)
[2020-03-02] MEDS: ACETAMINOPHEN 325 MG TABLET (FP) PO PRN (09:39)
[2020-03-02] MEDS: P-EPHED 60MG/TRIPROLIDI 2.5MG TABLET PO PRN (09:40)
[2020-03-02] MEDS: IBUPROFEN 400 MG TABLET (FP) PO PRN (11:11)
[2020-03-02] MEDS: THIAMINE HCL 100 MG TABLET (FP) PO SCH (21:42)
[2020-03-02] MEDS: MIRTAZAPINE 15 MG TABLET (FP) PO SCH (21:42)
[2020-03-02] MEDS: MELATONIN 5 MG TABLETS PO SCH (21:44)
[2020-03-03] MEDS: ACETAMINOPHEN 325 MG TABLET (FP) PO PRN (06:07)
[2020-03-03] MEDS: P-EPHED 60MG/TRIPROLIDI 2.5MG TABLET PO PRN (06:08)
[2020-03-03] MEDS: BICTEGRAV/EMTRICIT/TENOFOV (BIKTARVY) 50-200-25 MG TABLET PO SCH (07:15)
[2020-03-03] MEDS: TOLNAFTATE 1% CREAM 15 GM TUBE TP SCH ×2 (10:02→21:01)
[2020-03-03] MEDS: PRENATAL VITAMINS W/ FOLIC ACID TABLET (FP) PO SCH (10:02)
[2020-03-03] MEDS: NICOTINE 7 MG/24 HOURS TOPICAL PATCH TD SCH (10:02)
[2020-03-03] MEDS: IBUPROFEN 400 MG TABLET (FP) PO PRN (10:03)
[2020-03-03] MEDS: THIAMINE HCL 100 MG TABLET (FP) PO SCH (21:01)
[2020-03-03] MEDS: MELATONIN 5 MG TABLETS PO SCH (21:01)
[2020-03-03] MEDS: MIRTAZAPINE 15 MG TABLET (FP) PO SCH (21:01)
[2020-03-04] MEDS: P-EPHED 60MG/TRIPROLIDI 2.5MG TABLET PO PRN (02:07)
[2020-03-04] MEDS: IBUPROFEN 400 MG TABLET (FP) PO PRN (02:07)
[2020-03-04] MEDS: BICTEGRAV/EMTRICIT/TENOFOV (BIKTARVY) 50-200-25 MG TABLET PO SCH (08:50)
[2020-03-04] MEDS: ACETAMINOPHEN 325 MG TABLET (FP) PO PRN (09:43)
[2020-03-04] MEDS: PRENATAL VITAMINS W/ FOLIC ACID TABLET (FP) PO SCH (09:44)
[2020-03-04] MEDS ORDERED: PT OWN MED DRAWER 7, Y5N ONE (09:45)
[2020-03-04] MEDS: NICOTINE 7 MG/24 HOURS TOPICAL PATCH TD SCH (09:46)
[2020-03-04] MEDS: TOLNAFTATE 1% CREAM 15 GM TUBE TP SCH ×2 (09:46→22:00)
--- NOTE | 2020-03-04 13:24 | PN ---
S Progress Note Note: Patient is scheduled for discharge tomorrow. Script for 30 days supply of Remeron 15 mg/hs will be electronically transmitted to [facility], [address] [place] [phone]
[2020-03-04] MEDS: MELATONIN 5 MG TABLETS PO SCH (22:00)
[2020-03-04] MEDS: MIRTAZAPINE 15 MG TABLET (FP) PO SCH (22:00)
[2020-03-04] MEDS: THIAMINE HCL 100 MG TABLET (FP) PO SCH (22:01)
[2020-03-05] MEDS ORDERED: MASKS NR ONE (07:09)
[2020-03-05 07:11] VITALS: BP 112/76; PULSE 86; TEMP 98
[2020-03-05] MEDS: BICTEGRAV/EMTRICIT/TENOFOV (BIKTARVY) 50-200-25 MG TABLET PO SCH (07:17)
--- NOTE | 2020-03-05 09:30 | DS ---
[facility] Rehab Discharge Summary - [facility] Rehab Discharge Summary Admission Date: 02/06/20 Discharge Date: 03/05/20 - History Present History: Alcohol dependence, Cannabis dependence, Cocaine dependence Pertinent Past History: AIDS hep C hemorrhoids Bipolar Disorder - Discharge Physical Exam Vital Signs: Vital Signs Temperature 98 F 03/05/20 06:05 Pulse Rate 86 03/05/20 06:05 Respiratory Rate 18 03/05/20 06:05 Blood Pressure 112/76 03/05/20 06:05 O2 Sat by Pulse Oximetry (%) 96 03/05/20 06:05 Alert o x 3 nad, no resp difficulty oob ambulating with steady gait. active FROM, all limbs. Pertinent Admission Physical Exam Findings: Laboratory Tests 02/23/20 10:30 COVID-19 (FRANCA) Not detected - Treatment Discharge Condition: Discharge condition good, Rehabilitated safely, Responded well, Outpatient referral accepted Hospital Course: Completed Rehab and discharged today. CD aftercare accepted to [facility]. - Medication Discharge Medications: Ambulatory Orders Bictegrav/Emtricit/Tenofov Ala [Biktarvy 50-200-25 mg Tablet] 1 each PO DAILY #30 tab 03/05/20 Mirtazapine [Remeron -] 15 mg PO HS 03/05/20 - Medication-Assisted Treatment (MAT) Medication-Assisted Treatment (MAT): No - Discharge Instructions Diet, activity, other medical instructions: Diet:Regular Activity: oob ad ying Other medical instructions:follow up with CD aftercare at [facility]. Reminded to follow up with primary care provider Dr. Jonas Vincent @ [facility]. - Diagnosis (1) Alcohol dependence Current Visit: Yes Status: Chronic (2) Cannabis dependence Current Visit: Yes Status: Chronic (3) Cocaine dependence Current Visit: Yes Status: Chronic (4) Hep C w/o coma, chronic Current Visit: Yes Status: Chronic (5) Acquired immune deficiency syndrome (AIDS) Current Visit: Yes Status: Chronic - Follow-up Referral Minutes to complete discharge: 25 - AMA Did Patient Leave Against Medical Advice: No Additional Comments: Pt reports he missed previous medical appointments with his primary care. Courtesy Rx for Biktarvy 1 tab po daily #30 electronically sent to [facility] pharmacy for sheepskin pickler. Instructed pt to follow up with his PCP for further medical management.
[2020-03-05] MEDS: hydrOXYzine PAMOATE 25 MG CAPSULE (FP) PO PRN (09:32)
[2020-03-05] MEDS: PRENATAL VITAMINS W/ FOLIC ACID TABLET (FP) PO SCH (09:32)
[2020-03-05] MEDS: P-EPHED 60MG/TRIPROLIDI 2.5MG TABLET PO PRN (09:33)
[2020-03-05] MEDS: TOLNAFTATE 1% CREAM 15 GM TUBE TP SCH (09:33)
[2020-03-05] MEDS: NICOTINE 7 MG/24 HOURS TOPICAL PATCH TD SCH (09:33)
[2020-03-05] MEDS: ACETAMINOPHEN 325 MG TABLET (FP) PO PRN (09:34)
== END 2020-03-05 09:52 | disposition home or self-care (01) | DRG 772 ==
LOC: YASAS 13:59 → Y3W 14:02
PROVIDERS: ADMIT Allergy & Immunology; ATTEND Allergy & Immunology
PROC: HZ42ZZZ Group Counseling for Substance Abuse Treatment, Cognitive-Behavioral (ICD-10-PCS; principal; 2020-02-06)
DX: F10.20 Alcohol dependence, uncomplicated (principal); F14.20 Cocaine dependence, uncomplicated; F12.20 Cannabis dependence, uncomplicated; F19.282 Other psychoactive substance dependence with psychoactive substance-induced sleep disorder; F31.9 Bipolar disorder, unspecified; B20 Human immunodeficiency virus [HIV] disease; B18.2 Chronic viral hepatitis C; L30.9 Dermatitis, unspecified; K64.9 Unspecified hemorrhoids; H57.11 Ocular pain, right eye; Z91.011 Allergy to milk products
CPT/HCPCS: U0003

== ENCOUNTER 2021-02-11 11:18 | Inpatient (IN) | payer OTHER ==
[2021-02-11 12:19] VITALS: BMI 21.2
[2021-02-11] MEDS ORDERED: LOPERAMIDE HCL 2 MG CAPSULE PO PRN (18:46)
[2021-02-11] MEDS ORDERED: MAG HYDROX/AL HYDROX/SIMETH 30 ML UNIT-DOSE CUP PO PRN (18:46)
[2021-02-11] MEDS ORDERED: P-EPHED 60MG/TRIPROLIDI 2.5MG TABLET PO PRN (18:46)
[2021-02-11] MEDS ORDERED: guaiFENesin 200 MG/10 ML 10 ML UNIT-DOSE CUPS PO PRN (18:46)
[2021-02-11] MEDS ORDERED: MAGNESIUM HYDROX 2400MG/30ML ORAL SUSPENSION 30 ML CUP PO PRN (18:46)
[2021-02-11] MEDS ORDERED: MAGNESIUM CITRATE 300 ML BOTTLE PO PRN (18:46)
[2021-02-11] MEDS ORDERED: ACETAMINOPHEN 325 MG TABLET (FP) PO PRN (18:46)
[2021-02-11] MEDS: THIAMINE HCL 100 MG TABLET (FP) PO SCH (21:47)
[2021-02-11] MEDS: hydrOXYzine PAMOATE 25 MG CAPSULE (FP) PO SCH (21:47)
[2021-02-11] MEDS: IBUPROFEN 400 MG TABLET (FP) PO PRN (21:48)
[2021-02-11] MEDS ORDERED: MIRTAZAPINE 15 MG TABLET (FP) PO ONE (22:00)
[2021-02-11] MEDS ORDERED: MELATONIN 5 MG TABLETS PO SCH (22:00)
[2021-02-12] MEDS: hydrOXYzine PAMOATE 25 MG CAPSULE (FP) PO SCH ×5 (06:28→21:47)
[2021-02-12] MEDS: BICTEGRAV/EMTRICIT/TENOFOV (BIKTARVY) 50-200-25 MG TABLET PO SCH (07:12)
[2021-02-12] MEDS: PRENATAL VITAMINS W/ FOLIC ACID TABLET (FP) PO SCH (10:53)
[2021-02-12 10:57] LABS: HEMATOCRIT 40.5 % (35.4-49); HEMOGLOBIN 13.7 GM/dL (11.7-16.9); MCH 29.9 pg (25.7-33.7); MCHC 33.8 g/dl (32.0-35.9); MEAN CELL VOLUME 88.5 fl (80-96); PLATELET COUNT 246 10^3/uL (134-434); RBC 4.58 M/mm3 (4.00-5.60); RDW 13.1 % (11.9-15.9); WHITE BLOOD COUNT 4.8 K/mm3 (4.0-10.0)
[2021-02-12 13:22] LABS: ALBUMIN 3.1 g/dl (3.4-5.0); CALCIUM 8.9 mg/dL (8.5-10.1)
[2021-02-12 13:23] LABS: BLOOD UREA NITROGEN 15.8 mg/dL (7-18)
[2021-02-12 13:26] LABS: CREATININE 1.2 mg/dL (0.55-1.3)
[2021-02-12 13:27] LABS: BILIRUBIN,TOTAL 0.3 mg/dL (0.2-1); TOT PROT 7.7 g/dl (6.4-8.2)
[2021-02-12] MEDS: MIRTAZAPINE 15 MG TABLET (FP) PO SCH (21:47)
[2021-02-12] MEDS: THIAMINE HCL 100 MG TABLET (FP) PO SCH (21:48)
[2021-02-12] MEDS: IBUPROFEN 400 MG TABLET (FP) PO PRN (21:48)
[2021-02-13] MEDS: hydrOXYzine PAMOATE 25 MG CAPSULE (FP) PO SCH ×5 (06:20→21:12)
[2021-02-13] MEDS ORDERED: PT OWN MED DRAWER 7, Y5N ONE (06:20)
[2021-02-13] MEDS: BICTEGRAV/EMTRICIT/TENOFOV (BIKTARVY) 50-200-25 MG TABLET PO SCH (08:08)
[2021-02-13] MEDS: PRENATAL VITAMINS W/ FOLIC ACID TABLET (FP) PO SCH (10:24)
[2021-02-13] MEDS: THIAMINE HCL 100 MG TABLET (FP) PO SCH (21:12)
[2021-02-13] MEDS: MIRTAZAPINE 15 MG TABLET (FP) PO SCH (21:12)
[2021-02-14] MEDS: hydrOXYzine PAMOATE 25 MG CAPSULE (FP) PO SCH ×5 (05:58→22:08)
[2021-02-14] MEDS: BICTEGRAV/EMTRICIT/TENOFOV (BIKTARVY) 50-200-25 MG TABLET PO SCH (07:52)
[2021-02-14] MEDS: PRENATAL VITAMINS W/ FOLIC ACID TABLET (FP) PO SCH (10:27)
[2021-02-14] MEDS: MIRTAZAPINE 15 MG TABLET (FP) PO SCH (22:08)
[2021-02-14] MEDS: THIAMINE HCL 100 MG TABLET (FP) PO SCH (22:08)
[2021-02-15] MEDS: hydrOXYzine PAMOATE 25 MG CAPSULE (FP) PO SCH ×5 (06:13→21:13)
[2021-02-15] MEDS: PRENATAL VITAMINS W/ FOLIC ACID TABLET (FP) PO SCH (10:30)
[2021-02-15] MEDS: BICTEGRAV/EMTRICIT/TENOFOV (BIKTARVY) 50-200-25 MG TABLET PO SCH (10:34)
[2021-02-15] MEDS: MIRTAZAPINE 15 MG TABLET (FP) PO SCH (21:13)
[2021-02-15] MEDS: THIAMINE HCL 100 MG TABLET (FP) PO SCH (21:13)
[2021-02-16] MEDS: hydrOXYzine PAMOATE 25 MG CAPSULE (FP) PO SCH ×5 (06:40→21:34)
[2021-02-16] MEDS: BICTEGRAV/EMTRICIT/TENOFOV (BIKTARVY) 50-200-25 MG TABLET PO SCH (07:35)
[2021-02-16] MEDS: PRENATAL VITAMINS W/ FOLIC ACID TABLET (FP) PO SCH (10:28)
[2021-02-16] MEDS: MIRTAZAPINE 15 MG TABLET (FP) PO SCH (21:34)
[2021-02-16] MEDS: THIAMINE HCL 100 MG TABLET (FP) PO SCH (21:34)
[2021-02-16] MEDS: IBUPROFEN 400 MG TABLET (FP) PO PRN (21:34)
[2021-02-17] MEDS: hydrOXYzine PAMOATE 25 MG CAPSULE (FP) PO SCH ×5 (06:12→21:09)
[2021-02-17] MEDS: BICTEGRAV/EMTRICIT/TENOFOV (BIKTARVY) 50-200-25 MG TABLET PO SCH (07:56)
[2021-02-17] MEDS: IBUPROFEN 400 MG TABLET (FP) PO PRN (10:15)
[2021-02-17] MEDS: PRENATAL VITAMINS W/ FOLIC ACID TABLET (FP) PO SCH (10:15)
[2021-02-17] MEDS: IBUPROFEN 600 MG TABLET (FP) PO PRN (18:36)
[2021-02-17] MEDS: THIAMINE HCL 100 MG TABLET (FP) PO SCH (21:08)
[2021-02-17] MEDS: MIRTAZAPINE 15 MG TABLET (FP) PO SCH (21:09)
[2021-02-18] MEDS: IBUPROFEN 600 MG TABLET (FP) PO PRN ×2 (01:25→21:28)
[2021-02-18] MEDS: hydrOXYzine PAMOATE 25 MG CAPSULE (FP) PO SCH ×5 (06:13→21:27)
[2021-02-18] MEDS: BICTEGRAV/EMTRICIT/TENOFOV (BIKTARVY) 50-200-25 MG TABLET PO SCH (07:49)
[2021-02-18] MEDS: PRENATAL VITAMINS W/ FOLIC ACID TABLET (FP) PO SCH (10:20)
[2021-02-18] MEDS: THIAMINE HCL 100 MG TABLET (FP) PO SCH (21:27)
[2021-02-18] MEDS: MIRTAZAPINE 15 MG TABLET (FP) PO SCH (21:27)
[2021-02-18] MEDS: SUVOREXANT 10 MG TABLET PO PRN (21:28)
[2021-02-19] MEDS: hydrOXYzine PAMOATE 25 MG CAPSULE (FP) PO SCH ×4 (06:30→13:57)
[2021-02-19] MEDS: METHOCARBAMOL 500 MG TABLET PO PRN ×2 (06:30→21:15)
[2021-02-19] MEDS: BICTEGRAV/EMTRICIT/TENOFOV (BIKTARVY) 50-200-25 MG TABLET PO SCH (07:37)
[2021-02-19] MEDS: PRENATAL VITAMINS W/ FOLIC ACID TABLET (FP) PO SCH (11:00)
[2021-02-19] MEDS: IBUPROFEN 600 MG TABLET (FP) PO PRN (11:05)
[2021-02-19] MEDS ORDERED: hydrOXYzine PAMOATE 25 MG CAPSULE (FP) PO PRN (15:01)
[2021-02-19] MEDS: SUVOREXANT 10 MG TABLET PO PRN (21:15)
[2021-02-19] MEDS: MIRTAZAPINE 15 MG TABLET (FP) PO SCH (21:15)
[2021-02-19] MEDS: THIAMINE HCL 100 MG TABLET (FP) PO SCH (21:15)
[2021-02-19] MEDS: LIDOCAINE PATCH REMOVAL MC SCH (21:16)
[2021-02-19] MEDS: METHYL SALICYLATE/MENTHOL OINT 30 GM TUBE TP SCH (21:16)
[2021-02-20] MEDS: BICTEGRAV/EMTRICIT/TENOFOV (BIKTARVY) 50-200-25 MG TABLET PO SCH (07:05)
[2021-02-20] MEDS: PRENATAL VITAMINS W/ FOLIC ACID TABLET (FP) PO SCH (09:52)
[2021-02-20] MEDS: NAPROXEN 500 MG TABLET PO PRN (09:52)
[2021-02-20] MEDS: LIDOCAINE 5% TOPICAL PATCH TP SCH (09:52)
[2021-02-20] MEDS: THIAMINE HCL 100 MG TABLET (FP) PO SCH (21:51)
[2021-02-20] MEDS: MIRTAZAPINE 15 MG TABLET (FP) PO SCH (21:51)
[2021-02-20] MEDS: LIDOCAINE PATCH REMOVAL MC SCH (21:52)
[2021-02-20] MEDS: METHYL SALICYLATE/MENTHOL OINT 30 GM TUBE TP SCH (21:52)
[2021-02-20] MEDS ORDERED: PT OWN MED DRAWER 7, Y5N ONE (22:22)
[2021-02-21] MEDS: BICTEGRAV/EMTRICIT/TENOFOV (BIKTARVY) 50-200-25 MG TABLET PO SCH (08:45)
[2021-02-21] MEDS: METHOCARBAMOL 500 MG TABLET PO PRN ×2 (10:09→21:23)
[2021-02-21] MEDS: LIDOCAINE 5% TOPICAL PATCH TP SCH (10:09)
[2021-02-21] MEDS: PRENATAL VITAMINS W/ FOLIC ACID TABLET (FP) PO SCH (10:09)
[2021-02-21] MEDS: NAPROXEN 500 MG TABLET PO PRN (10:09)
[2021-02-21] MEDS: THIAMINE HCL 100 MG TABLET (FP) PO SCH (21:23)
[2021-02-21] MEDS: LIDOCAINE PATCH REMOVAL MC SCH (21:23)
[2021-02-21] MEDS: MIRTAZAPINE 15 MG TABLET (FP) PO SCH (21:23)
[2021-02-21] MEDS: METHYL SALICYLATE/MENTHOL OINT 30 GM TUBE TP SCH (21:24)
[2021-02-22] MEDS: BICTEGRAV/EMTRICIT/TENOFOV (BIKTARVY) 50-200-25 MG TABLET PO SCH (08:18)
[2021-02-22] MEDS: LIDOCAINE 5% TOPICAL PATCH TP SCH (10:04)
[2021-02-22] MEDS: PRENATAL VITAMINS W/ FOLIC ACID TABLET (FP) PO SCH (10:04)
[2021-02-22] MEDS: SUVOREXANT 10 MG TABLET PO PRN (21:21)
[2021-02-22] MEDS: THIAMINE HCL 100 MG TABLET (FP) PO SCH (21:21)
[2021-02-22] MEDS: MIRTAZAPINE 15 MG TABLET (FP) PO SCH (21:21)
[2021-02-22] MEDS: METHYL SALICYLATE/MENTHOL OINT 30 GM TUBE TP SCH (21:22)
[2021-02-22] MEDS: METHOCARBAMOL 500 MG TABLET PO PRN (21:22)
[2021-02-22] MEDS: LIDOCAINE PATCH REMOVAL MC SCH (21:22)
[2021-02-23 06:55] VITALS: TEMP 98.2
[2021-02-23] MEDS: BICTEGRAV/EMTRICIT/TENOFOV (BIKTARVY) 50-200-25 MG TABLET PO SCH (07:04)
[2021-02-23] MEDS: PRENATAL VITAMINS W/ FOLIC ACID TABLET (FP) PO SCH (09:13)
[2021-02-23] MEDS: LIDOCAINE 5% TOPICAL PATCH TP SCH (09:14)
[2021-02-23] MEDS: NAPROXEN 500 MG TABLET PO PRN (14:50)
[2021-02-23] MEDS: MIRTAZAPINE 15 MG TABLET (FP) PO SCH (21:14)
[2021-02-23] MEDS: METHOCARBAMOL 500 MG TABLET PO PRN (21:14)
[2021-02-23] MEDS: LIDOCAINE PATCH REMOVAL MC SCH (21:15)
[2021-02-23] MEDS: SUVOREXANT 10 MG TABLET PO PRN (21:15)
[2021-02-23] MEDS: THIAMINE HCL 100 MG TABLET (FP) PO SCH (21:15)
[2021-02-23] MEDS: METHYL SALICYLATE/MENTHOL OINT 30 GM TUBE TP SCH (21:15)
[2021-02-24] MEDS: BICTEGRAV/EMTRICIT/TENOFOV (BIKTARVY) 50-200-25 MG TABLET PO SCH (07:16)
[2021-02-24] MEDS: NAPROXEN 500 MG TABLET PO PRN ×2 (10:26→21:26)
[2021-02-24] MEDS: PRENATAL VITAMINS W/ FOLIC ACID TABLET (FP) PO SCH (10:26)
[2021-02-24] MEDS: LIDOCAINE 5% TOPICAL PATCH TP SCH (10:27)
[2021-02-24] MEDS: MIRTAZAPINE 15 MG TABLET (FP) PO SCH (21:25)
[2021-02-24] MEDS: THIAMINE HCL 100 MG TABLET (FP) PO SCH (21:25)
[2021-02-24] MEDS: METHYL SALICYLATE/MENTHOL OINT 30 GM TUBE TP SCH (21:27)
[2021-02-24] MEDS: LIDOCAINE PATCH REMOVAL MC SCH (21:27)
[2021-02-24] MEDS ORDERED: SUVOREXANT 10 MG TABLET PO PRN (22:00)
[2021-02-25] MEDS: NAPROXEN 500 MG TABLET PO PRN (06:18)
[2021-02-25] MEDS ORDERED: PT OWN MED DRAWER 7, Y5N ONE (06:18)
[2021-02-25 07:34] VITALS: BP 111/83; PULSE 88
[2021-02-25] MEDS: BICTEGRAV/EMTRICIT/TENOFOV (BIKTARVY) 50-200-25 MG TABLET PO SCH (08:05)
[2021-02-25] MEDS: PRENATAL VITAMINS W/ FOLIC ACID TABLET (FP) PO SCH (09:58)
[2021-02-25] MEDS: LIDOCAINE 5% TOPICAL PATCH TP SCH (09:58)
[2021-02-25] MEDS: METHOCARBAMOL 500 MG TABLET PO PRN (09:58)
== END 2021-02-25 10:00 | disposition home or self-care (01) | DRG 772 ==
LOC: YASAS 11:18 → Y3W 19:24
PROVIDERS: ADMIT Allergy & Immunology; ATTEND Allergy & Immunology
PROC: HZ42ZZZ Group Counseling for Substance Abuse Treatment, Cognitive-Behavioral (ICD-10-PCS; principal; 2021-02-11)
DX: F14.20 Cocaine dependence, uncomplicated (principal); F10.20 Alcohol dependence, uncomplicated; F12.20 Cannabis dependence, uncomplicated; F17.210 Nicotine dependence, cigarettes, uncomplicated; F19.282 Other psychoactive substance dependence with psychoactive substance-induced sleep disorder; F32.9 Major depressive disorder, single episode, unspecified; B18.2 Chronic viral hepatitis C; J44.9 Chronic obstructive pulmonary disease, unspecified; J45.909 Unspecified asthma, uncomplicated; L30.9 Dermatitis, unspecified
CPT/HCPCS: 36415; 71046-TC-FY; 71101-TC-RT-FY; 80053; 85027; 86593; 86780; 93005; 93010; C9803; U0003; U0005

== ENCOUNTER 2021-11-21 11:29 | Inpatient (IN) | payer OTHER ==
[2021-11-21] MEDS ORDERED: NICOTINE 10 MG CARTRIDGE (INHALER) IH PRN (11:56)
[2021-11-21] MEDS ORDERED: MAG HYDROX/AL HYDROX/SIMETH 30 ML UNIT-DOSE CUP PO PRN (11:56)
[2021-11-21] MEDS ORDERED: MAGNESIUM CITRATE 300 ML BOTTLE PO PRN (11:56)
[2021-11-21] MEDS ORDERED: LOPERAMIDE HCL 2 MG CAPSULE PO PRN (11:56)
[2021-11-21] MEDS ORDERED: guaiFENesin 200 MG/10 ML 10 ML UNIT-DOSE CUPS PO PRN (11:56)
[2021-11-21] MEDS ORDERED: MAGNESIUM HYDROX 2400MG/30ML ORAL SUSPENSION 30 ML CUP PO PRN (11:56)
[2021-11-21] MEDS ORDERED: P-EPHED 60MG/TRIPROLIDI 2.5MG TABLET PO PRN (11:56)
[2021-11-21 12:43] VITALS: BMI 21.5
[2021-11-21 14:04] LABS: HEMATOCRIT 41.5 % (35.4-49); HEMOGLOBIN 13.4 GM/dL (11.7-16.9); MCH 28.7 pg (25.7-33.7); MCHC 32.3 g/dl (32.0-35.9); MEAN CELL VOLUME 88.7 fl (80-96); MEAN PLT VOLUME 9.6 fl (7.5-11.1); PLATELET COUNT 143 10^3/uL (134-434); RBC 4.68 M/mm3 (4.00-5.60); RDW 13.7 % (11.9-15.9); WHITE BLOOD COUNT 2.5 K/mm3 (4.0-10.0)
[2021-11-21 14:10] LABS: BLOOD UREA NITROGEN 16.2 mg/dL (7-18)
[2021-11-21 14:11] LABS: CALCIUM 8.8 mg/dL (8.5-10.1)
[2021-11-21 14:12] LABS: ALBUMIN 3.1 g/dl (3.4-5.0)
[2021-11-21 14:14] LABS: CREATININE 1.1 mg/dL (0.55-1.3)
[2021-11-21 14:15] LABS: BILIRUBIN,TOTAL 0.4 mg/dL (0.2-1); TOT PROT 7.3 g/dl (6.4-8.2)
[2021-11-21 15:42] LABS: SYPHILIS W/ RPR CONF REACTIVE (NONREACTIVE)
[2021-11-21] MEDS: IBUPROFEN 400 MG TABLET (FP) PO PRN (20:00)
[2021-11-21] MEDS: hydrOXYzine PAMOATE 25 MG CAPSULE (FP) PO SCH ×3 (20:02→21:31)
[2021-11-21] MEDS: PRENATAL VITAMINS W/ FOLIC ACID TABLET (FP) PO SCH (20:02)
[2021-11-21] MEDS: BICTEGRAV/EMTRICIT/TENOFOV (BIKTARVY) 50-200-25 MG TABLET PO SCH (20:02)
[2021-11-21] MEDS: NICOTINE 7 MG/24 HOURS TOPICAL PATCH TD SCH (20:25)
[2021-11-21] MEDS: NICOTINE 14 MG/24 HOURS TOPICAL PATCH TD SCH (20:25)
[2021-11-21] MEDS: MELATONIN 5 MG TABLETS PO SCH (21:31)
[2021-11-21] MEDS: MIRTAZAPINE 15 MG TABLET (FP) PO SCH (21:31)
[2021-11-21] MEDS: ACETAMINOPHEN 325 MG TABLET (FP) PO PRN (21:31)
[2021-11-21] MEDS: THIAMINE HCL 100 MG TABLET (FP) PO SCH (21:31)
[2021-11-22 01:15] LABS: PH,URINE 7.5 (5.0-8.0); URINE APPEARANCE CLEAR; URINE BILIRUBIN NEGATIVE (NEGATIVE); URINE COLOR YELLOW; URINE GLUCOSE (UA) NEGATIVE (NEGATIVE); URINE KETONE NEGATIVE (NEGATIVE); URINE LEUK ESTERASE NEGATIVE (NEGATIVE); URINE NITRITE NEGATIVE (NEGATIVE); URINE PROTEIN NEGATIVE (NEGATIVE); URINE UROBILINOGEN 0.2 mg/dL (0.2-1.0)
[2021-11-22 01:23] LABS: EPI CELLS 2 /uL (0-25.1); HYALINE CASTS 0 /uL (0-3.1); URINE BACTERIA 2 /uL (0-1359); URINE RBC 2 /uL (0-23.9); URINE WBC 12 /uL (0-25.8)
[2021-11-22] MEDS: hydrOXYzine PAMOATE 25 MG CAPSULE (FP) PO SCH ×5 (06:24→21:29)
[2021-11-22] MEDS: NICOTINE 14 MG/24 HOURS TOPICAL PATCH TD SCH (09:37)
[2021-11-22] MEDS: PRENATAL VITAMINS W/ FOLIC ACID TABLET (FP) PO SCH (09:37)
[2021-11-22] MEDS: BICTEGRAV/EMTRICIT/TENOFOV (BIKTARVY) 50-200-25 MG TABLET PO SCH (09:37)
[2021-11-22] MEDS: IBUPROFEN 400 MG TABLET (FP) PO PRN ×2 (09:39→21:28)
[2021-11-22] MEDS: NICOTINE 7 MG/24 HOURS TOPICAL PATCH TD SCH (09:40)
[2021-11-22] MEDS: MELATONIN 5 MG TABLETS PO SCH (21:27)
[2021-11-22] MEDS: MIRTAZAPINE 15 MG TABLET (FP) PO SCH (21:29)
[2021-11-22] MEDS: THIAMINE HCL 100 MG TABLET (FP) PO SCH (21:29)
[2021-11-23] MEDS: hydrOXYzine PAMOATE 25 MG CAPSULE (FP) PO SCH ×5 (06:34→21:16)
[2021-11-23] MEDS: ACETAMINOPHEN 325 MG TABLET (FP) PO PRN ×2 (06:35→21:18)
[2021-11-23] MEDS ORDERED: cloNIDine HCL 0.1 MG TABLET PO ONE (07:32)
[2021-11-23] MEDS: BICTEGRAV/EMTRICIT/TENOFOV (BIKTARVY) 50-200-25 MG TABLET PO SCH (10:21)
[2021-11-23] MEDS: IBUPROFEN 400 MG TABLET (FP) PO PRN ×2 (10:22→17:41)
[2021-11-23] MEDS: PRENATAL VITAMINS W/ FOLIC ACID TABLET (FP) PO SCH (10:22)
[2021-11-23] MEDS: NICOTINE 7 MG/24 HOURS TOPICAL PATCH TD SCH (10:24)
[2021-11-23] MEDS: NICOTINE 14 MG/24 HOURS TOPICAL PATCH TD SCH (10:24)
[2021-11-23] MEDS: THIAMINE HCL 100 MG TABLET (FP) PO SCH (21:16)
[2021-11-23] MEDS: MELATONIN 5 MG TABLETS PO SCH (21:16)
[2021-11-23] MEDS: MIRTAZAPINE 15 MG TABLET (FP) PO SCH (21:16)
[2021-11-24] MEDS: hydrOXYzine PAMOATE 25 MG CAPSULE (FP) PO SCH ×2 (06:42→09:19)
[2021-11-24] MEDS: IBUPROFEN 400 MG TABLET (FP) PO PRN ×2 (07:36→21:33)
[2021-11-24] MEDS: NICOTINE 7 MG/24 HOURS TOPICAL PATCH TD SCH (09:18)
[2021-11-24] MEDS: NICOTINE 14 MG/24 HOURS TOPICAL PATCH TD SCH (09:18)
[2021-11-24] MEDS: PRENATAL VITAMINS W/ FOLIC ACID TABLET (FP) PO SCH ×2 (09:19→09:27)
[2021-11-24] MEDS: BICTEGRAV/EMTRICIT/TENOFOV (BIKTARVY) 50-200-25 MG TABLET PO SCH (09:26)
[2021-11-24] MEDS: ACETAMINOPHEN 325 MG TABLET (FP) PO PRN (09:27)
[2021-11-24] MEDS ORDERED: hydrOXYzine PAMOATE 25 MG CAPSULE (FP) PO PRN (09:54)
[2021-11-24] MEDS ORDERED: cloNIDine HCL 0.1 MG TABLET PO PRN (10:20)
[2021-11-24 16:08] LABS: HEMATOCRIT 42.7 % (37.5-51.0); HEMOGLOBIN 13.8 g/dL (13.0-17.7); MCH 28.6 pg (26.6-33.0); MCHC 32.3 g/dL (31.5-35.7); PLATELET COUNT 143 x10E3/uL (150-450); RBC 4.82 x10E6/uL (4.14-5.80); RDW 12.1 % (11.6-15.4); WHITE BLOOD COUNT 2.2 x10E3/uL (3.4-10.8)
[2021-11-24] MEDS: MIRTAZAPINE 15 MG TABLET (FP) PO SCH (21:33)
[2021-11-24] MEDS: THIAMINE HCL 100 MG TABLET (FP) PO SCH (21:33)
[2021-11-24] MEDS: MELATONIN 5 MG TABLETS PO SCH (21:33)
[2021-11-25] MEDS: ACETAMINOPHEN 325 MG TABLET (FP) PO PRN (06:56)
[2021-11-25] MEDS: BICTEGRAV/EMTRICIT/TENOFOV (BIKTARVY) 50-200-25 MG TABLET PO SCH (07:04)
[2021-11-25] MEDS: PRENATAL VITAMINS W/ FOLIC ACID TABLET (FP) PO SCH (09:24)
[2021-11-25] MEDS: NICOTINE 7 MG/24 HOURS TOPICAL PATCH TD SCH (09:24)
[2021-11-25] MEDS: MAGNESIUM OXIDE 400 MG TABLET (FP) PO SCH ×2 (11:00→21:40)
[2021-11-25] MEDS: NAPROXEN 500 MG TABLET PO PRN ×2 (11:48→21:40)
[2021-11-25] MEDS: MELATONIN 5 MG TABLETS PO SCH (21:39)
[2021-11-25] MEDS: THIAMINE HCL 100 MG TABLET (FP) PO SCH (21:40)
[2021-11-25] MEDS: MIRTAZAPINE 15 MG TABLET (FP) PO SCH (21:40)
[2021-11-26] MEDS: ACETAMINOPHEN 325 MG TABLET (FP) PO PRN (06:32)
[2021-11-26] MEDS: BICTEGRAV/EMTRICIT/TENOFOV (BIKTARVY) 50-200-25 MG TABLET PO SCH (08:00)
[2021-11-26] MEDS: NICOTINE 7 MG/24 HOURS TOPICAL PATCH TD SCH (09:27)
[2021-11-26] MEDS: MAGNESIUM OXIDE 400 MG TABLET (FP) PO SCH ×2 (09:27→21:24)
[2021-11-26] MEDS: PRENATAL VITAMINS W/ FOLIC ACID TABLET (FP) PO SCH (09:27)
[2021-11-26] MEDS: NAPROXEN 500 MG TABLET PO PRN (16:45)
[2021-11-26] MEDS: THIAMINE HCL 100 MG TABLET (FP) PO SCH (21:24)
[2021-11-26] MEDS: MELATONIN 5 MG TABLETS PO SCH (21:24)
[2021-11-26] MEDS: MIRTAZAPINE 15 MG TABLET (FP) PO SCH (21:24)
[2021-11-27] MEDS: BICTEGRAV/EMTRICIT/TENOFOV (BIKTARVY) 50-200-25 MG TABLET PO SCH (07:08)
[2021-11-27] MEDS: TOLNAFTATE 1% CREAM 15 GM TUBE TP SCH ×2 (10:03→21:34)
[2021-11-27] MEDS: NAPROXEN 500 MG TABLET PO PRN ×2 (10:03→21:32)
[2021-11-27] MEDS: PRENATAL VITAMINS W/ FOLIC ACID TABLET (FP) PO SCH (10:03)
[2021-11-27] MEDS: MAGNESIUM OXIDE 400 MG TABLET (FP) PO SCH ×2 (10:03→21:33)
[2021-11-27] MEDS: NICOTINE 7 MG/24 HOURS TOPICAL PATCH TD SCH (10:04)
[2021-11-27] MEDS: ACETAMINOPHEN 325 MG TABLET (FP) PO PRN (17:02)
[2021-11-27] MEDS ORDERED: NYSTATIN 500,000 UNITS/5 ML SUSPENSION PO ONE (18:06)
[2021-11-27] MEDS ORDERED: BENZOCAINE/MENTHOL 1 EACH LOZENGE MM PRN (18:06)
[2021-11-27] MEDS: THIAMINE HCL 100 MG TABLET (FP) PO SCH (21:32)
[2021-11-27] MEDS: MIRTAZAPINE 15 MG TABLET (FP) PO SCH (21:33)
[2021-11-27] MEDS: MELATONIN 5 MG TABLETS PO SCH (21:33)
[2021-11-27] MEDS: CLOTRIMAZOLE 10 MG TROCHE PO SCH ×3 (21:33→22:06)
[2021-11-27] MEDS ORDERED: CLOTRIMAZOLE 10 MG TROCHE PO SCH (22:00)
[2021-11-28] MEDS: BICTEGRAV/EMTRICIT/TENOFOV (BIKTARVY) 50-200-25 MG TABLET PO SCH (07:06)
[2021-11-28] MEDS: CLOTRIMAZOLE 10 MG TROCHE PO SCH ×5 (07:06→21:50)
[2021-11-28] MEDS: MAGNESIUM OXIDE 400 MG TABLET (FP) PO SCH ×2 (09:54→21:49)
[2021-11-28] MEDS: NICOTINE 7 MG/24 HOURS TOPICAL PATCH TD SCH (09:55)
[2021-11-28] MEDS: TOLNAFTATE 1% CREAM 15 GM TUBE TP SCH ×2 (09:55→21:49)
[2021-11-28] MEDS: PRENATAL VITAMINS W/ FOLIC ACID TABLET (FP) PO SCH (09:55)
[2021-11-28] MEDS: ACETAMINOPHEN 325 MG TABLET (FP) PO PRN (09:56)
[2021-11-28] MEDS: BENZOCAINE/MENTHOL (CHLORASEPTIC ) LOZENGE MM PRN ×2 (12:40→18:17)
[2021-11-28] MEDS: MIRTAZAPINE 15 MG TABLET (FP) PO SCH (21:49)
[2021-11-28] MEDS: MELATONIN 5 MG TABLETS PO SCH (21:50)
[2021-11-28] MEDS: THIAMINE HCL 100 MG TABLET (FP) PO SCH (21:51)
[2021-11-29] MEDS: CLOTRIMAZOLE 10 MG TROCHE PO SCH ×5 (06:33→21:27)
[2021-11-29] MEDS: BICTEGRAV/EMTRICIT/TENOFOV (BIKTARVY) 50-200-25 MG TABLET PO SCH (07:08)
[2021-11-29] MEDS: MAGNESIUM OXIDE 400 MG TABLET (FP) PO SCH ×2 (09:41→21:27)
[2021-11-29] MEDS: NICOTINE 7 MG/24 HOURS TOPICAL PATCH TD SCH (09:42)
[2021-11-29] MEDS: TOLNAFTATE 1% CREAM 15 GM TUBE TP SCH ×2 (09:42→21:27)
[2021-11-29] MEDS: PRENATAL VITAMINS W/ FOLIC ACID TABLET (FP) PO SCH (09:42)
[2021-11-29] MEDS: NAPROXEN 500 MG TABLET PO PRN (09:43)
[2021-11-29] MEDS: BENZOCAINE/MENTHOL (CHLORASEPTIC ) LOZENGE MM PRN ×2 (09:51→21:28)
[2021-11-29] MEDS: MELATONIN 5 MG TABLETS PO SCH (21:27)
[2021-11-29] MEDS: THIAMINE HCL 100 MG TABLET (FP) PO SCH (21:27)
[2021-11-29] MEDS: MIRTAZAPINE 15 MG TABLET (FP) PO SCH (21:27)
[2021-11-30] MEDS: CLOTRIMAZOLE 10 MG TROCHE PO SCH ×5 (06:14→21:16)
[2021-11-30] MEDS: BICTEGRAV/EMTRICIT/TENOFOV (BIKTARVY) 50-200-25 MG TABLET PO SCH (07:03)
[2021-11-30] MEDS: MAGNESIUM OXIDE 400 MG TABLET (FP) PO SCH ×2 (09:26→21:16)
[2021-11-30] MEDS: NICOTINE 7 MG/24 HOURS TOPICAL PATCH TD SCH (09:27)
[2021-11-30] MEDS: PRENATAL VITAMINS W/ FOLIC ACID TABLET (FP) PO SCH (09:27)
[2021-11-30] MEDS: TOLNAFTATE 1% CREAM 15 GM TUBE TP SCH ×2 (09:27→21:16)
[2021-11-30] MEDS: NAPROXEN 500 MG TABLET PO PRN (09:28)
[2021-11-30] MEDS: MELATONIN 5 MG TABLETS PO SCH (21:16)
[2021-11-30] MEDS: THIAMINE HCL 100 MG TABLET (FP) PO SCH (21:16)
[2021-11-30] MEDS: ACETAMINOPHEN 325 MG TABLET (FP) PO PRN (21:19)
[2021-11-30] MEDS: MIRTAZAPINE 15 MG TABLET (FP) PO SCH (22:58)
[2021-12-01] MEDS: BICTEGRAV/EMTRICIT/TENOFOV (BIKTARVY) 50-200-25 MG TABLET PO SCH (06:59)
[2021-12-01] MEDS: CLOTRIMAZOLE 10 MG TROCHE PO SCH ×5 (06:59→21:24)
[2021-12-01] MEDS: PRENATAL VITAMINS W/ FOLIC ACID TABLET (FP) PO SCH (09:35)
[2021-12-01] MEDS: NICOTINE 7 MG/24 HOURS TOPICAL PATCH TD SCH (09:35)
[2021-12-01] MEDS: MAGNESIUM OXIDE 400 MG TABLET (FP) PO SCH ×2 (09:35→21:25)
[2021-12-01] MEDS: TOLNAFTATE 1% CREAM 15 GM TUBE TP SCH ×2 (09:36→21:53)
[2021-12-01] MEDS: NAPROXEN 500 MG TABLET PO PRN ×2 (09:37→21:28)
[2021-12-01] MEDS: BENZOCAINE/MENTHOL (CHLORASEPTIC ) LOZENGE MM PRN ×2 (09:38→21:29)
[2021-12-01] MEDS ORDERED: COLLOIDAL OATMEAL 1 BAR EACH TP PRN (15:55)
[2021-12-01] MEDS: THIAMINE HCL 100 MG TABLET (FP) PO SCH (21:25)
[2021-12-01] MEDS: MIRTAZAPINE 15 MG TABLET (FP) PO SCH (21:25)
[2021-12-01] MEDS: MELATONIN 5 MG TABLETS PO SCH (21:26)
[2021-12-02] MEDS: CLOTRIMAZOLE 10 MG TROCHE PO SCH ×5 (07:00→21:11)
[2021-12-02] MEDS: BICTEGRAV/EMTRICIT/TENOFOV (BIKTARVY) 50-200-25 MG TABLET PO SCH (07:00)
[2021-12-02] MEDS: MAGNESIUM OXIDE 400 MG TABLET (FP) PO SCH ×2 (09:37→21:10)
[2021-12-02] MEDS: PRENATAL VITAMINS W/ FOLIC ACID TABLET (FP) PO SCH (09:38)
[2021-12-02] MEDS: NICOTINE 7 MG/24 HOURS TOPICAL PATCH TD SCH (09:38)
[2021-12-02] MEDS: ACETAMINOPHEN 325 MG TABLET (FP) PO PRN (09:39)
[2021-12-02] MEDS: TOLNAFTATE 1% CREAM 15 GM TUBE TP SCH ×2 (11:14→21:13)
[2021-12-02] MEDS: MELATONIN 5 MG TABLETS PO SCH (21:10)
[2021-12-02] MEDS: THIAMINE HCL 100 MG TABLET (FP) PO SCH (21:10)
[2021-12-02] MEDS: MIRTAZAPINE 15 MG TABLET (FP) PO SCH (21:10)
[2021-12-02] MEDS: NAPROXEN 500 MG TABLET PO PRN (21:12)
[2021-12-03] MEDS: CLOTRIMAZOLE 10 MG TROCHE PO SCH ×5 (06:35→21:36)
[2021-12-03] MEDS: BICTEGRAV/EMTRICIT/TENOFOV (BIKTARVY) 50-200-25 MG TABLET PO SCH (07:11)
[2021-12-03] MEDS: PRENATAL VITAMINS W/ FOLIC ACID TABLET (FP) PO SCH (10:15)
[2021-12-03] MEDS: MAGNESIUM OXIDE 400 MG TABLET (FP) PO SCH ×2 (10:15→21:37)
[2021-12-03] MEDS: NICOTINE 7 MG/24 HOURS TOPICAL PATCH TD SCH (10:16)
[2021-12-03] MEDS: NAPROXEN 500 MG TABLET PO PRN ×2 (10:17→21:35)
[2021-12-03] MEDS: TOLNAFTATE 1% CREAM 15 GM TUBE TP SCH ×2 (10:17→21:37)
[2021-12-03] MEDS: MELATONIN 5 MG TABLETS PO SCH (21:35)
[2021-12-03] MEDS: MIRTAZAPINE 15 MG TABLET (FP) PO SCH (21:35)
[2021-12-03] MEDS: THIAMINE HCL 100 MG TABLET (FP) PO SCH (21:35)
[2021-12-04] MEDS: CLOTRIMAZOLE 10 MG TROCHE PO SCH ×5 (06:48→21:30)
[2021-12-04] MEDS: ACETAMINOPHEN 325 MG TABLET (FP) PO PRN (07:04)
[2021-12-04] MEDS: BICTEGRAV/EMTRICIT/TENOFOV (BIKTARVY) 50-200-25 MG TABLET PO SCH (07:08)
[2021-12-04] MEDS: PRENATAL VITAMINS W/ FOLIC ACID TABLET (FP) PO SCH (09:38)
[2021-12-04] MEDS: MAGNESIUM OXIDE 400 MG TABLET (FP) PO SCH ×2 (09:39→21:30)
[2021-12-04] MEDS: NICOTINE 7 MG/24 HOURS TOPICAL PATCH TD SCH (09:39)
[2021-12-04] MEDS: NAPROXEN 500 MG TABLET PO PRN ×2 (09:40→21:30)
[2021-12-04] MEDS: TOLNAFTATE 1% CREAM 15 GM TUBE TP SCH ×2 (09:40→21:31)
[2021-12-04] MEDS: MIRTAZAPINE 15 MG TABLET (FP) PO SCH (21:30)
[2021-12-04] MEDS: THIAMINE HCL 100 MG TABLET (FP) PO SCH (21:30)
[2021-12-04] MEDS: MELATONIN 5 MG TABLETS PO SCH (21:31)
[2021-12-05] MEDS: CLOTRIMAZOLE 10 MG TROCHE PO SCH ×5 (06:52→21:00)
[2021-12-05] MEDS: BICTEGRAV/EMTRICIT/TENOFOV (BIKTARVY) 50-200-25 MG TABLET PO SCH (07:15)
[2021-12-05] MEDS: MAGNESIUM OXIDE 400 MG TABLET (FP) PO SCH ×2 (11:17→21:00)
[2021-12-05] MEDS: PRENATAL VITAMINS W/ FOLIC ACID TABLET (FP) PO SCH (11:18)
[2021-12-05] MEDS: NICOTINE 7 MG/24 HOURS TOPICAL PATCH TD SCH (11:18)
[2021-12-05] MEDS: TOLNAFTATE 1% CREAM 15 GM TUBE TP SCH ×2 (11:18→21:01)
[2021-12-05] MEDS: THIAMINE HCL 100 MG TABLET (FP) PO SCH (21:00)
[2021-12-05] MEDS: NAPROXEN 500 MG TABLET PO PRN (21:00)
[2021-12-05] MEDS: MIRTAZAPINE 15 MG TABLET (FP) PO SCH (21:00)
[2021-12-05] MEDS: MELATONIN 5 MG TABLETS PO SCH (21:00)
[2021-12-06] MEDS: CLOTRIMAZOLE 10 MG TROCHE PO SCH ×5 (06:37→21:53)
[2021-12-06] MEDS: BICTEGRAV/EMTRICIT/TENOFOV (BIKTARVY) 50-200-25 MG TABLET PO SCH (07:19)
[2021-12-06] MEDS: MAGNESIUM OXIDE 400 MG TABLET (FP) PO SCH ×2 (10:17→21:52)
[2021-12-06] MEDS: NICOTINE 7 MG/24 HOURS TOPICAL PATCH TD SCH (10:18)
[2021-12-06] MEDS: PRENATAL VITAMINS W/ FOLIC ACID TABLET (FP) PO SCH (10:18)
[2021-12-06] MEDS: TOLNAFTATE 1% CREAM 15 GM TUBE TP SCH ×2 (10:19→21:53)
[2021-12-06] MEDS: ACETAMINOPHEN 325 MG TABLET (FP) PO PRN (10:20)
[2021-12-06] MEDS: MELATONIN 5 MG TABLETS PO SCH (21:52)
[2021-12-06] MEDS: MIRTAZAPINE 15 MG TABLET (FP) PO SCH (21:52)
[2021-12-06] MEDS: THIAMINE HCL 100 MG TABLET (FP) PO SCH (21:52)
[2021-12-06] MEDS: NAPROXEN 500 MG TABLET PO PRN (21:53)
[2021-12-07] MEDS: CLOTRIMAZOLE 10 MG TROCHE PO SCH ×5 (07:07→21:25)
[2021-12-07] MEDS: BICTEGRAV/EMTRICIT/TENOFOV (BIKTARVY) 50-200-25 MG TABLET PO SCH (07:35)
[2021-12-07] MEDS: PRENATAL VITAMINS W/ FOLIC ACID TABLET (FP) PO SCH (09:46)
[2021-12-07] MEDS: NICOTINE 7 MG/24 HOURS TOPICAL PATCH TD SCH (09:46)
[2021-12-07] MEDS: MAGNESIUM OXIDE 400 MG TABLET (FP) PO SCH ×2 (09:47→21:25)
[2021-12-07] MEDS: TOLNAFTATE 1% CREAM 15 GM TUBE TP SCH ×2 (09:47→21:28)
[2021-12-07] MEDS: NAPROXEN 500 MG TABLET PO PRN ×2 (09:49→21:27)
[2021-12-07] MEDS: THIAMINE HCL 100 MG TABLET (FP) PO SCH (21:25)
[2021-12-07] MEDS: MELATONIN 5 MG TABLETS PO SCH (21:25)
[2021-12-07] MEDS: MIRTAZAPINE 15 MG TABLET (FP) PO SCH (21:27)
[2021-12-08 06:37] VITALS: BP 120/85; PULSE 92; TEMP 97.7
[2021-12-08] MEDS: NAPROXEN 500 MG TABLET PO PRN (06:50)
[2021-12-08] MEDS: BICTEGRAV/EMTRICIT/TENOFOV (BIKTARVY) 50-200-25 MG TABLET PO SCH (07:03)
[2021-12-08] MEDS: CLOTRIMAZOLE 10 MG TROCHE PO SCH ×2 (07:06→09:05)
[2021-12-08] MEDS: NICOTINE 7 MG/24 HOURS TOPICAL PATCH TD SCH (09:05)
[2021-12-08] MEDS: MAGNESIUM OXIDE 400 MG TABLET (FP) PO SCH (09:05)
[2021-12-08] MEDS: PRENATAL VITAMINS W/ FOLIC ACID TABLET (FP) PO SCH (09:05)
[2021-12-08] MEDS: TOLNAFTATE 1% CREAM 15 GM TUBE TP SCH (09:06)
== END 2021-12-08 09:54 | disposition home or self-care (01) | DRG 772 ==
LOC: YASAS 11:29 → Y3E 16:53
PROVIDERS: ADMIT Allergy & Immunology; ATTEND Psychiatry & Neurology Pain Medicine
PROC: HZ42ZZZ Group Counseling for Substance Abuse Treatment, Cognitive-Behavioral (ICD-10-PCS; principal; 2021-11-21)
DX: F10.20 Alcohol dependence, uncomplicated (principal); F14.20 Cocaine dependence, uncomplicated; F12.20 Cannabis dependence, uncomplicated; F17.210 Nicotine dependence, cigarettes, uncomplicated; F19.282 Other psychoactive substance dependence with psychoactive substance-induced sleep disorder; F32.A Depression, unspecified; B20 Human immunodeficiency virus [HIV] disease; B37.0 Candidal stomatitis; J44.9 Chronic obstructive pulmonary disease, unspecified; L30.9 Dermatitis, unspecified; R03.0 Elevated blood-pressure reading, without diagnosis of hypertension; Z86.19 Personal history of other infectious and parasitic diseases; Z91.51 Personal history of suicidal behavior; Z91.011 Allergy to milk products
CPT/HCPCS: 36415; 80053; 81003; 85027; 86360; 86593; 86780; 86803; 87522; C9803-CS; J0735; U0003; U0005